=== PATIENT | male | born 1965 | race Caucasian/White ===

== ENCOUNTER 2022-02-26 07:19 | Observation (INO) ==
--- NOTE | 2021-07-16 07:55 | History & Physical Report ---
Date of Service July 16, 2021 date of surgery: 07/31/21 Procedure: Left Total Knee Arthroplasty Surgeon: Ian Wing History of Present Illness Primary Care Provider: Ian Munoz marline is a 55 year old male who complains of right knee pain, presents for pre-op evaluation prior to a right total knee replacement by Dr Wing at [facility]. he complains of pain, decreased range of motion, instability and stiffness in his right knee. Currently the patient states that the symptoms are moderate- severe. The pain is described as aching, sharp and throbbing. The symptoms occur continuously. The symptoms are aggravated by ascending stairs, daily activities, first steps while awake walking. Prior NSAIDs include IBU and Aleve. he has been treated with previous visco and cortisone injections in the past without much relief. he has also undergone previous bilateral knee arthroscopies. Allergies Allergy/AdvReac Type Severity Reaction Status Date / Time No Known Allergies Allergy Verified 05/23/21 15:34 Home Medications Medication Instructions Recorded Confirmed Type allopurinol 100 mg tablet 100 mg PO BID 05/23/21 05/23/21 History aspirin 81 mg tablet 81 mg PO QAM 05/23/21 05/23/21 History atorvastatin 10 mg tablet 10 mg PO HS 05/23/21 05/23/21 History cholecalciferol (vitamin D3) 10 30 mcg PO QAM 05/23/21 05/23/21 History mcg (400 unit) chewable tablet (Vitamin D3) cyanocobalamin (vitamin B-12) 1,000 mcg PO QAM 05/23/21 05/23/21 History 1,000 mcg tablet,extended release (Vitamin B-12 ER) diltiazem HCl 240 mg capsule,24 240 mg PO HS 05/23/21 05/23/21 History hr,extended release duloxetine 60 mg capsule,delayed 60 mg PO HS 05/23/21 05/23/21 History release losartan 100 1 tab PO QAM 05/23/21 05/23/21 History mg-hydrochlorothiazide 25 mg tablet naproxen sodium 220 mg tablet 440 mg PO BID 05/23/21 05/23/21 History (Aleve) omeprazole 20 mg capsule,delayed 20 mg PO QAM 05/23/21 05/23/21 History release temazepam 30 mg capsule 30 mg PO HS PRN 05/23/21 05/23/21 History vitamin E 400 unit capsule 400 unit PO QAM 05/23/21 05/23/21 History Past Med/Surg History Medical History (Updated 05/30/21 @ 16:27 by Socorro Neff PA-C) Chronic back pain Degenerative disc disease GERD (gastroesophageal reflux disease) Well controlled, stable, denies issues laying flat Gout Hx of fracture L4-L5 fracture Hx of gastric ulcer 2017, 3 units PRBCs transfusion. Hx SBO post lumbar fusion, adhesion lysis 2 months ago at [place], Dr. Stanford, reports well recovered without further issues. Hyperlipidemia Hypertension Well controlled, stable. Incontinent of feces at times (takes Metamucil and follows a schedule for maintenance) Incontinent of urine at times -- r/t lumbar surgery post op complication with an injury to the spinal cord causing numbness from the chest down but has regained strength to walk. Kidney stones 2017, passed Osteoarthritis Spinal cord stimulator status placed 01/2021, has remote. Surgical History H/O arthroscopy of knee bilateral H/O exploratory laparotomy multiple for lysis of adhesions and SBO/twisted bowel H/O hernia repair as a child H/O laparoscopy (~2020) lysis of adhesions History of cardiac cath (~2012) x3, last approx. 2015, no stents. [facility]. Official cath report not received. History of colonoscopy History of cystoscopy History of esophagogastroduodenoscopy (EGD) History of lumbar surgery (~2010) 12/2018. [facility]. r/t lumbar fracture. L4-S1 fusion, significant transfusion. post op complication with an injury to the spinal cord causing numbness from the chest down but able to walk. History of open reduction and internal fixation (ORIF) procedure right arm S/P epidural steroid injection S/P hardware removal right arm S/P insertion of spinal cord stimulator S/P lumbar fusion (~2018) L4-S1 Family History Father FHx: myocardial infarction FHx: hypertension Brother FHx: myocardial infarction FHx: hypertension Other No family history of adverse response to anesthesia Social History Smoking Status: Former smoker Smoking End Date: 2004; Second Hand Exposure: No; Do You Dip or Chew Tobacco: No (quit 2004); Tobacco Cessation Education Requested by Patient: No Hx Alcohol Use: Yes Alcohol type: beer, wine and hard liquor Hx Substance Use: Yes Last Used Substance Other:: 05/20/21 Preferred Language: Turkish Communication Ability: Effective Car Starter Required: No Beliefs That Will Affect Care: None Current Living Situation: Spouse Other Information That Helps Us Care for You: No Feels Safe at Home: Yes Safety Concerns: Feels Safe At This Time Assistive Devices: Glasses
--- NOTE | 2021-11-06 08:18 | History & Physical Report ---
Date of Service November 06, 2021 date of surgery: 12/04/21 Procedure: Right Total Knee Arthroplasty Surgeon: Ian Wing Assessment & Plan (1) Arthritis of right knee: Plan: Risks and benefits of procedure discussed in detail today, patient would like to proceed with a Right total knee replacement at [facility] as scheduled. will obtain medical clearance prior to surgery as well as obtain PATs at [facility]. Will place on ASA 81mg po bid x 1 month post op, f/u 2 weeks post op for routine post-operative care and x-ray, sooner if having any problems. will make arrangements for outpatient joint program with HHPT at the time of discharge. At this point in time, has failed conservative measures and would like to proceed with surgical intervention. The risks and benefits have been discussed including, but not limited to, risk of infection, nerve injury, stiffness, loss of motion, failure to improve, etc. Reasonable outcomes and options of treatment were discussed. An explanation of appropriate alternatives to the procedure that may be advantageous were discussed and their risks and benefits, as well as the risks and benefits of not proceeding with treatment. I offered to answer any additional inquiries concerning the treatment involved. All the patient's questions were answered. The patient is agreeable, understanding of the treatment plan and alternatives, and wishes to proceed with the treatment plan. History of Present Illness Chief Complaint: right knee pain Primary Care Provider: Ian Munoz Ronny is a 56 year old male who complains of right knee pain, presents for pre-op evaluation prior to a right total knee replacement by Dr Wing at [facility]. he complains of pain, decreased range of motion, instability and stiffness in his right knee. Currently the patient states that the symptoms are moderate- severe. The pain is described as aching, sharp and throbbing. The symptoms occur continuously. The symptoms are aggravated by ascending stairs, daily activities, first steps while awake walking. Prior NSAIDs include IBU and Aleve. he has been treated with previous visco and cortisone injections in the past without much relief. he has also undergone previous bilateral knee arthroscopies. Allergies Allergy/AdvReac Type Severity Reaction Status Date / Time No Known Allergies Allergy Verified 05/23/21 15:34 Home Medications Medication Instructions Recorded Confirmed Type allopurinol 100 mg tablet 100 mg PO BID 05/23/21 05/23/21 History aspirin 81 mg tablet 81 mg PO QAM 05/23/21 05/23/21 History atorvastatin 10 mg tablet 10 mg PO HS 05/23/21 05/23/21 History cholecalciferol (vitamin D3) 10 30 mcg PO QAM 05/23/21 05/23/21 History mcg (400 unit) chewable tablet (Vitamin D3) cyanocobalamin (vitamin B-12) 1,000 mcg PO QAM 05/23/21 05/23/21 History 1,000 mcg tablet,extended release (Vitamin B-12 ER) diltiazem HCl 240 mg capsule,24 240 mg PO HS 05/23/21 05/23/21 History hr,extended release duloxetine 60 mg capsule,delayed 60 mg PO HS 05/23/21 05/23/21 History release losartan 100 1 tab PO QAM 05/23/21 05/23/21 History mg-hydrochlorothiazide 25 mg tablet naproxen sodium 220 mg tablet 440 mg PO BID 05/23/21 05/23/21 History (Aleve) omeprazole 20 mg capsule,delayed 20 mg PO QAM 05/23/21 05/23/21 History release temazepam 30 mg capsule 30 mg PO HS PRN 05/23/21 05/23/21 History vitamin E 400 unit capsule 400 unit PO QAM 05/23/21 05/23/21 History Past Med/Surg History Medical History Chronic back pain Degenerative disc disease GERD (gastroesophageal reflux disease) Well controlled, stable, denies issues laying flat Gout Hx of fracture L4-L5 fracture Hx of gastric ulcer 2016, 3 units PRBCs transfusion. Hx SBO post lumbar fusion, adhesion lysis 2 months ago at [place], Dr. Stanford, reports well recovered without further issues. Hyperlipidemia Hypertension Well controlled, stable. Incontinent of feces at times (takes Metamucil and follows a schedule for maintenance) Incontinent of urine at times -- r/t lumbar surgery post op complication with an injury to the spinal cord causing numbness from the chest down but has regained strength to walk. Kidney stones 2017, passed Osteoarthritis Spinal cord stimulator status placed 01/2021, has remote. Surgical History H/O arthroscopy of knee bilateral H/O exploratory laparotomy multiple for lysis of adhesions and SBO/twisted bowel H/O hernia repair as a child H/O laparoscopy (~2020) lysis of adhesions History of cardiac cath (~2012) x3, last approx. 2015, no stents. [facility]. Official cath report not received. History of colonoscopy History of cystoscopy History of esophagogastroduodenoscopy (EGD) History of lumbar surgery (~2010) 12/2018. [facility]. r/t lumbar fracture. L4-S1 fusion, significant transfusion. post op complication with an injury to the spinal cord causing numbness from the chest down but able to walk. History of open reduction and internal fixation (ORIF) procedure right arm S/P epidural steroid injection S/P hardware removal right arm S/P insertion of spinal cord stimulator S/P lumbar fusion (~2018) L4-S1 Family History Father FHx: myocardial infarction FHx: hypertension Brother FHx: myocardial infarction FHx: hypertension Other No family history of adverse response to anesthesia Social History Smoking Status: Former smoker Second Hand Exposure: No; Hx Alcohol Use: Yes Alcohol type: beer, wine and hard liquor Hx Substance Use: Yes Last Used Substance Other:: 05/20/21 Preferred Language: Iraqi Communication Ability: Effective Package Sealer Required: No Beliefs That Will Affect Care: None Current Living Situation: Spouse Feels Safe at Home: Yes Assistive Devices: Glasses Review of Systems Review of Systems: All systems reviewed & are unremarkable except as noted in HPI & below Constitutional: no fever, no chills and no sweats Respiratory: no cough and no dyspnea Cardiovascular: no chest pain, no dyspnea and no orthopnea Gastrointestinal: no abdominal pain, no nausea and no vomiting Musculoskeletal: as per Subjective / HPI Physical Exam Physical Exam: HT: 6'1" WT: 280 lb BP: 150/90 Constitutional: WD/WN, vitals as above no acute distress Respiratory: normal respiratory effort, lungs clear to auscultation no respiratory distress, no labored breathing and does not use accessory muscles Cardiovascular: RRR, no murmur, no edema Gastrointestinal (Abdomen): normal bowel sounds, soft, nontender, no hepatosplenomegaly Musculoskeletal: Knee: + knee abnormal to inspection (RIGHT KNEE- ), + effusion (+1 effusion), + surgical incision (well healed portals), + limited ROM of knee (ROM 0/3/110), + knee ROM with crepitation, + joint line tenderness (medial joint line) and + Shahbaz's sign positive; no deformity, no skin erythema, no ecchymosis, no valgus laxity, no varus laxity, anterior drawer test negative, Zhang's sign negative and pivot shift test negative Results & Data Results & Data ([facility]) Diagnostic Findings Right Knee X-ray: Right knee series showing advanced degenerative changes to the right knee, narrowing of the medial compartment and patello-femoral joint with patellar spurring noted, findings showing joint space narrowing of the medial compartment and patello-femoral joint, osteophyte formation and subchondral sclerosis noted. overall varus alignment. no acute bony pathology noted.
--- NOTE | 2021-11-15 11:12 | PAT Medication Instructions ---
Medication Instructions Date of Service November 15, 2021 Home Medications allopurinol 100 mg tablet 100 mg PO BID aspirin 81 mg tablet 81 mg PO QAM atorvastatin 10 mg tablet 10 mg PO HS cholecalciferol (vitamin D3) 10 mcg (400 unit) chewable tablet (Vitamin D3) 30 mcg PO QAM cyanocobalamin (vitamin B-12) 1,000 mcg tablet,extended release (Vitamin B-12 ER) 1,000 mcg PO QAM diltiazem HCl 240 mg capsule,24 hr,extended release 240 mg PO HS duloxetine 60 mg capsule,delayed release 60 mg PO HS losartan 100 mg-hydrochlorothiazide 25 mg tablet 1 tab PO QAM naproxen sodium 220 mg tablet (Aleve) 440 mg PO BID omeprazole 20 mg capsule,delayed release 20 mg PO QAM temazepam 30 mg capsule 30 mg PO HS PRN vitamin E 400 unit capsule 400 unit PO QAM ASK your surgeon for instructions naproxen sodium 220 mg tablet (Aleve) 440 mg PO BID STOP taking 2 weeks before surgery vitamin E 400 unit capsule 400 unit PO QAM DO NOT take the morning of surgery cholecalciferol (vitamin D3) 10 mcg (400 unit) chewable tablet (Vitamin D3) 30 mcg PO QAM cyanocobalamin (vitamin B-12) 1,000 mcg tablet,extended release (Vitamin B-12 ER) 1,000 mcg PO QAM losartan 100 mg-hydrochlorothiazide 25 mg tablet 1 tab PO QAM Take morning of surgery With a small sip of water, OTHERWISE NOTHING TO EAT OR DRINK AFTER MIDNIGHT: allopurinol 100 mg tablet 100 mg PO BID aspirin 81 mg tablet 81 mg PO QAM (unless surgeon directed otherwise) omeprazole 20 mg capsule,delayed release 20 mg PO QAM Take evening before surgery allopurinol 100 mg tablet 100 mg PO BID atorvastatin 10 mg tablet 10 mg PO HS diltiazem HCl 240 mg capsule,24 hr,extended release 240 mg PO HS duloxetine 60 mg capsule,delayed release 60 mg PO HS temazepam 30 mg capsule 30 mg PO HS PRN (if needed) Other Notes If you have any questions please call us at [phone] or [phone] or [phone] or [phone]
--- NOTE | 2021-11-16 08:29 | Anesthesiology Consultation ---
Date of Service November 16, 2021 Assessment & Plan (1) Encounter for pre-operative examination: - will obtain [facility] ER note 11/14/2021. - Pt reports upcoming pulmonology appointment 12/03/21, echo and chest CT. - PCP pre-op appointment 11/19/21. From anesthesia record 05/30/2021: Outpatient (Same Day) Joint Pathway assessment: Patient with history of significant SCI complications r/t previous lumber surgery resulting in intermittent urinary and fecal incontinence. Patient reports that he regained strength to walk but has residual numbness from the chest down. Patient isnota medically appropriate candidate for outpatient joint pathway from anesthesia perspective. Surgeon's office aware, stated is listed as inpatient on their end, aware booking is marked outpatient. She states will send message to OR. - anesthesia history: 12/2018. [facility]. r/t lumbar fracture. L4-S1 fusion, significant transfusion. post op complication with an injury to the spinal cord causing numbness from the chest down but able to walk. - spinal cord stimulator with remote. Pt aware to bring remote to hospital DOS. - COVID screening: Per assessment on 11/16/2021: Travel screen-returned from [place] drove, no known COVID-19 positive contacts or current COVID-19 related symptoms in past 2 weeks. Surgeon arranging preop COVID testing, scheduled 11/30/2021. Awaiting results. Chart Review Chart Review: Pending: Refer to Additional Notes / Consult section and Patient seen in Pre Admission Testing History Surgery Operation Date: 07/31/21 12:15 Proposed Procedures p Left Total Knee Arthroplasty - Ian Wing DO Operation Date: 12/04/21 07:15 Proposed Procedures p Right Total Knee Arthroplasty - Ian Wing DO Height/Weight Height: 6 ft 1 in Weight: 127.5 kg Allergies Allergy/AdvReac Type Severity Reaction Status Date / Time No Known Allergies Allergy Verified 11/15/21 09:37 Medications Home Medications Medication Instructions Recorded Confirmed Last Taken allopurinol 100 mg tablet 100 mg PO BID 05/23/21 11/15/21 Unknown aspirin 81 mg tablet 81 mg PO QAM 05/23/21 11/15/21 Unknown atorvastatin 10 mg tablet 10 mg PO HS 05/23/21 11/15/21 Unknown cholecalciferol (vitamin D3) 10 30 mcg PO QAM 05/23/21 11/15/21 Unknown mcg (400 unit) chewable tablet (Vitamin D3) cyanocobalamin (vitamin B-12) 1,000 mcg PO QAM 05/23/21 11/15/21 Unknown 1,000 mcg tablet,extended release (Vitamin B-12 ER) diltiazem HCl 240 mg capsule,24 240 mg PO HS 05/23/21 11/15/21 Unknown hr,extended release duloxetine 60 mg capsule,delayed 60 mg PO HS 05/23/21 11/15/21 Unknown release losartan 100 1 tab PO QAM 05/23/21 11/15/21 Unknown mg-hydrochlorothiazide 25 mg tablet naproxen sodium 220 mg tablet 440 mg PO BID 05/23/21 11/15/21 Unknown (Aleve) omeprazole 20 mg capsule,delayed 20 mg PO QAM 05/23/21 11/15/21 Unknown release temazepam 30 mg capsule 30 mg PO HS PRN 05/23/21 11/15/21 Unknown vitamin E 400 unit capsule 400 unit PO QAM 05/23/21 11/15/21 Unknown Breo Ellipta 11/16/21 Unknown coenzyme Q10 11/16/21 Unknown Past Medical History Medical History (Updated 11/16/21 @ 09:45 by Socorro Neff PA-C) Chronic back pain Degenerative disc disease Dyspnea on exertion associated occ cough and wheezing, at times waking from sleep; ongoing since COVID illness, denies change or worsening. Using Breo inhaler a few times weekly, occasionally at night. Reports upcoming echo, chest CT and pulm onology appointment with [facility] GERD (gastroesophageal reflux disease) Well controlled, stable, denies issues laying flat Gout History of COVID-19 05/2021; cough, sob, fever, body aches, chills, loss of taste/smell; residual dyspnea on exertion, impaired sense of taste and smell History of recent hospitalization [facility] ER visit 11/14/21. sob/cp. "thought i was having a heart attack" - reports work up normal other than HTN. BP 180s/110s upon arrival. instructed to follow up with PCP. Hx of fracture L4-L5 fracture Hx of gastric ulcer 2016, 3 units PRBCs transfusion Hx SBO post-op lumbar fusion, adhesion lysis 2 months ago ([place], Dr. Stanford), reports well recovered without further issues Hyperlipidemia Hypertension Incontinent of feces at times (takes Metamucil and follows a schedule for maintenance) Incontinent of urine at times -- r/t lumbar surgery post op complication with an injury to the spinal cord causing numbness from the chest down but has regained strength to walk. Kidney stones 2017, passed Osteoarthritis Spinal cord stimulator status placed 01/2021, has remote. Patient denies h/o stroke, seizures, heart attack, heart failure, DM, or blood clots. Exercise / Class Metabolic Activity II 4-5 Yardwork/Stairs/Walk up hill (SOB with 1 FOS ongoing since COVID illness, denies CP) Past Family History Family History Father FHx: myocardial infarction FHx: hypertension Brother FHx: myocardial infarction FHx: hypertension Other No family history of adverse response to anesthesia Past Surgical History Surgical History (Updated 11/16/21 @ 08:17 by Socorro Neff PA-C) H/O arthroscopy of knee bilateral H/O exploratory laparotomy multiple for lysis of adhesions and SBO/twisted bowel H/O hernia repair as a child H/O laparoscopy (~2020) lysis of adhesions History of cardiac cath (~2012) x3, last approx. 2015, no stents. [facility] [place]. Official cath report not received. History of colonoscopy History of cystoscopy History of esophagogastroduodenoscopy (EGD) History of lumbar surgery 12/2018. [facility] [place] r/t lumbar fracture. L4-S1 fusion, significant transfusion. post op complication with an injury to the spinal cord causing numbness from the chest down but able to walk. History of open reduction and internal fixation (ORIF) procedure right arm S/P epidural steroid injection S/P hardware removal right arm S/P insertion of spinal cord stimulator S/P lumbar fusion (~2018) L4-S1 Past Anesthesia History No Family Hx of Anesthesia Complications and Other (post-op transfusion) History of PONV No Hx of PONV and No Hx of Motion Sickness Social History Smoking Status: Former smoker tobacco type: cigarettes Do You Dip or Chew Tobacco: No (quit) Smoking End Date: 2004 Hx Alcohol Use: Yes Alcohol type: beer, wine and hard liquor alcohol intake frequency: 3 or more drinks per day Hx Substance Use: Yes substance use type: marijuana (advised) Last Used Substance: Unknown Last Used Substance Other:: 05/20/21 Review of Systems Patient denies chest pain, snoring, witnessed apneas, fever, chills or palpitations. Physical Exam Vital Signs Vitals BP 158/98 P 89 TEMP 98.6 SP02 100% on RA RESP 17 Physical Full cervical extension range of motion without pain Full TMJ range of motion TMD 3.5 finger breaths Mallampati Score 2 Dentition: intact, several missing teeth upper and lower back and sides, denies loose, chipped teeth, dentures, implants or bridges Lungs: normal respiratory effort. Clear throughout to auscultation, no adventitious breath sounds Cardiac: regular rate and rhythm, no murmurs noted Carotid arteries: negative bruit bilat Testing Laboratory Results 11/14/2021 WBC: 5.6 H/H: 13/38 PLATELETS: 253 Electrocardiogram Date: 11/16/21 NSR, rate 66 bpm Other Testing Chest CTA 11/14/21 Spinal stimulator Negative for pulmonary embolus Clear lung zones Negative for aortic aneurysm or dissection at the examined levels Diffuse hepatic steatosis
--- NOTE | 2022-01-28 07:59 | History & Physical Report ---
Date of Service January 28, 2022 date of surgery: 02/26/22 Procedure: Right Total Knee Arthroplasty Surgeon: Ian Wing Assessment & Plan (1) Arthritis of right knee: Plan: Risks and benefits of procedure discussed in detail today, patient would like to proceed with a Right total knee replacement at [facility] as scheduled. will obtain medical clearance prior to surgery as well as obtain PATs at [facility]. Will place on ASA 81mg po bid x 1 month post op, f/u 2 weeks post op for routine post-operative care and x-ray, sooner if having any problems. will make arrangements for outpatient joint program with HHPT at the time of discharge. At this point in time, has failed conservative measures and would like to proceed with surgical intervention. The risks and benefits have been discussed including, but not limited to, risk of infection, nerve injury, stiffness, loss of motion, failure to improve, etc. Reasonable outcomes and options of treatment were discussed. An explanation of appropriate alternatives to the procedure that may be advantageous were discussed and their risks and benefits, as well as the risks and benefits of not proceeding with treatment. I offered to answer any additional inquiries concerning the treatment involved. All the patient's questions were answered. The patient is agreeable, understanding of the treatment plan and alternatives, and wishes to proceed with the treatment plan. History of Present Illness Chief Complaint: Right knee pain Primary Care Provider: Ian Munoz Ronny is a 56 year old male who complains of right knee pain, presents for pre-op evaluation prior to a right total knee replacement by Dr Wing at [facility]. he complains of pain, decreased range of motion, instability and stiffness in his right knee. Currently the patient states that the symptoms are moderate- severe. The pain is described as aching, sharp and throbbing. The symptoms occur continuously. The symptoms are aggravated by ascending stairs, daily activities, first steps while awake walking. Prior NSAIDs include IBU and Aleve. he has been treated with previous visco and cortisone injections in the past without much relief. he has also undergone previous bilateral knee arthroscopies. Allergies Allergy/AdvReac Type Severity Reaction Status Date / Time No Known Allergies Allergy Verified 11/15/21 09:37 Home Medications Medication Instructions Recorded Confirmed Type allopurinol 100 mg tablet 100 mg PO BID 05/23/21 11/15/21 History aspirin 81 mg tablet 81 mg PO QAM 05/23/21 11/15/21 History atorvastatin 10 mg tablet 10 mg PO HS 05/23/21 11/15/21 History cholecalciferol (vitamin D3) 10 30 mcg PO QAM 05/23/21 11/15/21 History mcg (400 unit) chewable tablet (Vitamin D3) cyanocobalamin (vitamin B-12) 1,000 mcg PO QAM 05/23/21 11/15/21 History 1,000 mcg tablet,extended release (Vitamin B-12 ER) diltiazem HCl 240 mg capsule,24 240 mg PO HS 05/23/21 11/15/21 History hr,extended release duloxetine 60 mg capsule,delayed 60 mg PO HS 05/23/21 11/15/21 History release losartan 100 1 tab PO QAM 05/23/21 11/15/21 History mg-hydrochlorothiazide 25 mg tablet naproxen sodium 220 mg tablet 440 mg PO BID 05/23/21 11/15/21 History (Aleve) omeprazole 20 mg capsule,delayed 20 mg PO QAM 05/23/21 11/15/21 History release temazepam 30 mg capsule 30 mg PO HS PRN 05/23/21 11/15/21 History vitamin E 400 unit capsule 400 unit PO QAM 05/23/21 11/15/21 History Breo Ellipta 11/16/21 History coenzyme Q10 11/16/21 History Past Med/Surg History Medical History Chronic back pain Degenerative disc disease Dyspnea on exertion associated occ cough and wheezing, at times waking from sleep; ongoing since COVID illness, denies change or worsening. Using Breo inhaler a few times weekly, occasionally at night. Reports upcoming echo, chest CT and pulmonology appointment with [facility] GERD (gastroesophageal reflux disease) Well controlled, stable, denies issues laying flat Gout History of COVID-19 05/2021; cough, sob, fever, body aches, chills, loss of taste/smell; residual dyspnea on exertion, impaired sense of taste and smell History of recent hospitalization [facility] ER visit 11/14/21. sob/cp. "thought i was having a heart attack" - reports work up normal other than HTN. BP 180s/110s upon arrival. instructed to follow up with PCP. Hx of fracture L4-L5 fracture Hx of gastric ulcer 2017, 3 units PRBCs transfusion Hx SBO post-op lumbar fusion, adhesion lysis 2 months ago (Dr. Abdoulaye Rogers), reports well recovered without further issues Hyperlipidemia Hypertension Incontinent of feces at times (takes Metamucil and follows a schedule for maintenance) Incontinent of urine at times -- r/t lumbar surgery post op complication with an injury to the spinal cord causing numbness from the chest down but has regained strength to walk. Kidney stones 2017, passed Osteoarthritis Spinal cord stimulator status placed 01/2021, has remote. Surgical History H/O arthroscopy of knee bilateral H/O exploratory laparotomy multiple for lysis of adhesions and SBO/twisted bowel H/O hernia repair as a child H/O laparoscopy (~2020) lysis of adhesions History of cardiac cath (~2012) x3, last approx. 2015, no stents. [facility]. Official cath report not received. History of colonoscopy History of cystoscopy History of esophagogastroduodenoscopy (EGD) History of lumbar surgery 12/2018. [facility] [place]. r/t lumbar fracture. L4-S1 fusion, significant transfusion. post op complication with an injury to the spinal cord causing numbness from the chest down but able to walk. History of open reduction and internal fixation (ORIF) procedure right arm S/P epidural steroid injection S/P hardware removal right arm S/P insertion of spinal cord stimulator S/P lumbar fusion (~2018) L4-S1 Family History Father FHx: myocardial infarction FHx: hypertension Brother FHx: myocardial infarction FHx: hypertension Other No family history of adverse response to anesthesia Social History Smoking Status: Former smoker Smoking End Date: 2004; Second Hand Exposure: No; Do You Dip or Chew Tobacco: No (quit); Tobacco Cessation Education Requested by Patient: No Hx Alcohol Use: Yes Alcohol type: beer, wine and hard liquor Hx Substance Use: Yes Last Used Substance: Unknown Last Used Substance Other:: 05/20/21 Preferred Language: Vietnamese Communication Ability: Effective Behavioral Therapy Coordinator Required: No Beliefs That Will Affect Care: None Current Living Situation: Spouse Feels Safe at Home: Yes Safety Concerns: Feels Safe At This Time Assistive Devices: Glasses Review of Systems Constitutional: no fever, no chills and no sweats Respiratory: no cough and no dyspnea Cardiovascular: no chest pain, no dyspnea and no orthopnea Gastrointestinal: no abdominal pain, no nausea and no vomiting Musculoskeletal: as per Subjective / HPI Physical Exam Physical Exam: HT: 6'1" WT: 280 lb BP: 150/90 Constitutional: WD/WN, vitals as above no acute distress Respiratory: normal respiratory effort, lungs clear to auscultation no r espiratory distress, no labored breathing and does not use accessory muscles Cardiovascular: RRR, no murmur, no edema Gastrointestinal (Abdomen): normal bowel sounds, soft, nontender, no hepatosplenomegaly Musculoskeletal: Knee: + knee abnormal to inspection (RIGHT KNEE- ), + effusion (+1 effusion), + surgical incision (well healed portals), + limited ROM of knee (ROM 0/3/110), + knee ROM with crepitation, + joint line tenderness (medial joint line) and + Shahbaz's sign positive; no deformity, no skin erythema, no ecchymosis, no valgus laxity, no varus laxity, anterior drawer test negative, Zhang's sign negative and pivot shift test negative Results & Data Results & Data ([facility]) Diagnostic Findings Right Knee X-ray: Right knee series showing advanced degenerative changes to the right knee, narrowing of the medial compartment and patello-femoral joint with patellar spurring noted, findings showing joint space narrowing of the medial compartment and patello-femoral joint, osteophyte formation and subchondral sclerosis noted. overall varus alignment. no acute bony pathology noted.
[~2022-02-26 07:19] MED LIST: ACETAMINOPHEN 500 MG TAB PO SCH; BUPIVACAINE 0.5 % 5 MG/1 ML PF 10ML VIAL ONE; FAMOTIDINE 20 MG TAB PO SCH; GABAPENTIN 600 MG DOSE PO SCH; LR 500ML BOLUS, THEN 15ML/HR IV SCH; METOCLOPRAMIDE HCL 10 MG TABLET PO SCH; ROPIVACAINE 0.5% 5 MG/ML 30 ML VIAL ONE; ROPIVACAINE 0.5% HCL/PF 150 MG, BUPIVACAINE 0.75% MPF 20 ML, EPINEPHrine 30MG/30ML (OR ... INFIL SCH; TRANEXAMIC ACID 1,000 MG **IV Intra-op IV SCH; TRANEXAMIC ACID 1,000 MG **IV Pre-op IV SCH; dexAMETHasone 4 MG TAB PO SCH
[2022-02-26] MEDS ORDERED: fentaNYL citrate 100 MCG/2 ML VIAL ONE ×2 (07:53→11:16)
[2022-02-26] MEDS ORDERED: MIDAZOLAM HCL 1 MG/ML 2ML VIAL ONE (07:53)
--- NOTE | 2022-02-26 09:20 | History & Physical Bridge Note ---
Date of Service February 26, 2022 History & Physical Bridge Note I have examined the patient, reviewed the History & Physical and in the interval since the performance of the History & Physical I have noted the following changes of clinical significance: no changes noted
[2022-02-26] MEDS ORDERED: ONDANSETRON INJ 2 MG/ML 2 ML VIAL IV PRN ×2 (09:23→12:51)
[2022-02-26] MEDS ORDERED: ePHEDrine sulfate 50 MG/ML AMP IV PRN (09:23)
[2022-02-26] MEDS ORDERED: ATROPINE SULFATE 0.1 MG/ML 10ML SYR IV PRN (09:23)
[2022-02-26] MEDS ORDERED: ORTHO JOINT ANESTHETIC ONE (10:00)
[2022-02-26] MEDS ORDERED: PROPOFOL IV EMULSION 10 MG/ML 20 ML VIAL IV ONE (11:50)
[2022-02-26] MEDS ORDERED: LIDOCAINE 2% MPF LOCAL 5 ML VIAL INFIL ONE (11:51)
--- NOTE | 2022-02-26 12:06 | Operative Report ---
Post Operative Report Pre & Post Diagnosis Operation Date: 07/31/21 12:15 <No data on this case meets the specified criteria> Operation Date: 12/04/21 07:15 <No data on this case meets the specified criteria> Operation Date: 02/26/22 10:20 Pre-Op Diagnosis: Osteoarthritis, Right Knee Post-Op Diagnosis: Osteoarthritis, Right Knee I identified the patient and participated in the time-out.: Yes Procedure Operation Date: 07/31/21 12:15 <No data on this case meets the specified criteria> Operation Date: 12/04/21 07:15 <No data on this case meets the specified criteria> Operation Date: 02/26/22 10:20 Actual Procedures p Right Total Knee Arthroplasty(Right) - Ian Wing DO Surgeon Ian Wing DO Estimated Blood Loss 5 I attest to the content of the Intraoperative Record and any orders documented therein. Any exceptions are noted below.
--- NOTE | 2022-02-26 12:10 | Operative Report ---
Post Operative Report Pre & Post Diagnosis Operation Date: 07/31/21 12:15 <No data on this case meets the specified criteria> Operation Date: 12/04/21 07:15 <No data on this case meets the specified criteria> Operation Date: 02/26/22 10:20 Pre-Op Diagnosis: Osteoarthritis, Right Knee Post-Op Diagnosis: Osteoarthritis, Right Knee I identified the patient and participated in the time-out.: Yes Procedure Operation Date: 07/31/21 12:15 <No data on this case meets the specified criteria> Operation Date: 12/04/21 07:15 <No data on this case meets the specified criteria> Operation Date: 02/26/22 10:20 Actual Procedures p Right Total Knee Arthroplasty(Right) utilizing [employer] persona size 12 right femur tibia H poly-12 mm patella 34 oval Ian Wing DO Surgeon Ian Wing DO [employer] DEIDRE Fox Estimated Blood Loss 5 Findings Consistent with Post-Op Diagnosis Patient is a severe end-stage tricompartmental degenerative joint disease right knee no response to conservative management patient has eburnated [id number] marginal osteophytes subchondral sclerosis moderate to large effusion Specimens Bone and cartilage Drains Medium bore Hemovac Anesthesia Type MAC Spinal Regional Complications none Disposition Accompanied Patient To Recovery: No Disposition: Recovery Room Indications Patient presents with severe end-stage DJD right knee no response to conservative management patient has failed attempted corticosteroid injection viscosupplementation relative rest activity modification relative rest patient presents for right total knee arthroplasty Description of Procedure After proper prepping and draping of the Right lower extremity anterior midline incision was made over the region of the extensor extensor mechanism after meticulous hemostasis was obtained and maintained in subcutaneous tissues a medial parapatellar incision was made The patella was subluxed lateralward the medial lateral gutter were cleaned from any hypertrophic synovitis and scar tissue of the distal femoral block was placed and the distal femoral osteotomy cut was made subsequently the chamfers anterior and posterior osteotomy cuts were made utilizing the 4-in-1 block the tibia was subsequently subluxed anteriorward medial and ateral meniscal remnants were excised in their entirety remnants of the anterior and posterior cruciate ligaments were excised in their entirety excellent exposure of the proximal tibia was obtained the tibial osteotomy guide was placed on the proximal tibial osteotomy cut was made once again the knee was irrigated with copious amounts of sterile saline solution the patella was subsequently everted lateralward thickened scar tissue around the patella was removed the patella was subsequently cut utilizing a freehand technique and was drilled prepared for final preparation and placement of patella socially flexion-extension gaps were checked and the equal and symmetric trials were placed to the appropriate femoral and tibial trials with poly-spacer being placed for equal flexion and extension gaps and full range of motion including extension to 0 and flexion to 140 the trial components after having been taken to recovery range of motion was subsequently removed meticulous hemostasis was obtained and maintained subsequently a knee block injection of joint cocktail including ropivacaine 0.5% 150 mg. Bupivacaine 0.5% epinephrine 1-200,030 mL's toradol 30 mg dexamethasone 4 mg ketamine 10 mg clonidine 100 micrograms normal saline solution 30 mg was infiltrated into the soft tissues of the posterior knee medial lateral gutters and periosteal synovium special attention was paid to protect neurovascular structures at all times subsequently trial components having been removed the knee was irrigated with sterile saline solution. debris was removed the proximal tibia was subsequently prepared and was made ready for the placement of the tibial component tibial component was also cemented and tamped into position the femoral component was subsequently placed and cemented in the position the patellar component was subsequently cemented in position because hemostasis once again obtained and maintained wound having been thoroughly irrigated with debridement and debridement lavage was performed as well as a medial parapatellar incision closed with #1 Vicryl in interrupted fashion subcutaneous was closed with #2 Vicryl skin was closed with skin clips. PA-C was necessary for prepping and drapping as well as wound closure of deep fascia Sub cutaneous tissue and skin and was necessary for the case. A sterile compressive dressing was placed patient was taken to recovery in stable condition of report dictated by Maciej I attest to the content of the Intraoperative Record and any orders documented therein. Any exceptions are noted below.Due to the complex nature of the procedure, the entire surgery was performed with the operational assistance of DEIDRE Fox. The civil engineering assistant, under direct supervision, was involved in the actual performance of all aspects of the surgical procedure including hemostasis, tissue retraction and incision, instrument management, patient positioning, and wound closure. I attest to the content of the Intraoperative Record and any orders documented therein. Any exceptions are noted below.
[2022-02-26] MEDS ORDERED: bisacodyL 10 MG SUPP PR PRN (12:51)
[2022-02-26] MEDS ORDERED: NALOXONE HCL 0.4 MG/1 ML VIAL/CARP IV PRN (12:51)
[2022-02-26] MEDS ORDERED: METOCLOPRAMIDE HCL INJ 5 MG/ML 2 ML VIAL IV PRN (12:51)
[2022-02-26] MEDS ORDERED: MAGNESIUM HYDROXIDE SUSP 30 ML UDC PO PRN (12:51)
[2022-02-26] MEDS ORDERED: diphenhydrAMINE Capsule 25 MG CAP PO PRN (12:51)
[2022-02-26] MEDS: fentaNYL citrate 100 MCG/2 ML VIAL IV PRN ×2 (13:07→13:12)
--- NOTE | 2022-02-26 13:21 | XRay Report ---
RIGHT KNEE 2 VIEWS History: Right total knee arthroplasty. Degenerative arthritis. Postop. FINDINGS: The patient is status post a right total knee arthroplasty. The hardware is intact. No frac ture or dislocation. Surgical drains are in place. IMPRESSION: Right total knee arthroplasty. No evidence for hardware complication. ACT 112: Negative or not required by law. Electronically signed by: Paolo Gastelum M.D. 02/26/2022 1:19 PM
[2022-02-26] MEDS ORDERED: HYDROmorphone INJ 1 MG/ML SYRINGE ONE (13:22)
[2022-02-26] MEDS: HYDROmorphone INJ 0.5 MG/0.5 ML SYR IV PRN ×2 (13:22→13:27)
[2022-02-26] MEDS ORDERED: KETOROLAC 30 MG/ML VIAL ONE (13:40)
[2022-02-26] MEDS: KETOROLAC 30 MG/ML VIAL IV SCH ×2 (13:41→20:47)
--- NOTE | 2022-02-26 13:49 | Anesthesiology Progress Note ---
Date of Service February 26, 2022 Anesthesia Post Procedure Vital Signs Vital Signs: Temp Pulse Pulse Resp BP BP Pulse Ox 02/26/22 13:45 97.5 F L 84 18 135/87 95 02/26/22 13:35 80 18 111/74 93 02/26/22 13:25 74 14 140/81 92 02/26/22 13:15 83 16 129/80 93 02/26/22 13:05 78 14 131/82 92 02/26/22 12:55 63 13 116/80 97 02/26/22 12:46 96.8 F L 90 15 139/85 93 02/26/22 08:01 98.8 F 88 22 135/98 98 Pain Intensity Bilateral Knee: Pain Intensity: 4 Transfer of Care Handoff Completed per policy Notes Mental Status: alert / awake / arousable and participated in evaluation Patient Amnestic to Procedure: Yes Nausea / Vomiting: adequately controlled Pain: adequately controlled Airway Patency, RR, SpO2: stable & adequate BP & HR: stable & adequate Hydration State: stable & adequate Anesthetic Complications: no major complications apparent and Pt Satisfied with anesthetic care
[2022-02-26] MEDS: ACETAMINOPHEN 500 MG TAB PO SCH ×2 (14:47→22:42)
[2022-02-26] MEDS: SODIUM CHLORIDE 0.9% 1000ML 1,000 ML IV SCH ×2 (14:47→23:59)
[2022-02-26] MEDS ORDERED: Nursing to Pharmacy Communication SCH (15:00)
[2022-02-26] MEDS: HYDROmorphone INJ 1 MG/ML SYRINGE IV PRN ×2 (15:37→19:45)
[2022-02-26] MEDS: cloNIDine HCL 0.1 MG TAB PO SCH (15:39)
[2022-02-26] MEDS: oxyCODONE HCL IR 5 MG TAB (IMMEDIATE RELEASE) PO PRN (18:36)
[2022-02-26] MEDS: ceFAZolin 2000MG 2,000 MG/15 ML SYR IV SCH (18:37)
[2022-02-26] MEDS: allopurinoL 100 MG TAB PO SCH (20:53)
[2022-02-26] MEDS: ASPIRIN 81 MG ECTAB PO SCH (20:53)
[2022-02-26] MEDS: DOCUSATE SODIUM 100 MG CAP PO SCH (20:54)
[2022-02-26] MEDS ORDERED: amLODIPine BESYLATE 5 MG TAB PO SCH (21:00)
[2022-02-26] MEDS ORDERED: hydrOXYzine HCl 25 MG TAB PO SCH (21:00)
[2022-02-26] MEDS ORDERED: ATORVASTATIN 10 MG TAB PO SCH (21:00)
[2022-02-26] MEDS ORDERED: cloNIDine HCL 0.1 MG TAB PO SCH (21:00)
[2022-02-26] MEDS ORDERED: FLUTICASONE/VILANTEROL 200/25MCG 14 PUFFS/INHALER INH SCH (21:00)
[2022-02-26] MEDS ORDERED: DULoxetine HCL 30 MG CAP PO SCH (21:00)
[2022-02-26] MEDS ORDERED: SENNA 8.6 MG TAB PO SCH (21:00)
[2022-02-27] MEDS: oxyCODONE HCL IR 5 MG TAB (IMMEDIATE RELEASE) PO PRN (00:03)
[2022-02-27] MEDS: KETOROLAC 30 MG/ML VIAL IV SCH ×2 (02:53→09:13)
[2022-02-27] MEDS: ceFAZolin 2000MG 2,000 MG/15 ML SYR IV SCH (02:53)
[2022-02-27] MEDS: ACETAMINOPHEN 500 MG TAB PO SCH (06:26)
[2022-02-27] MEDS: cloNIDine HCL 0.1 MG TAB PO SCH (06:27)
[2022-02-27] MEDS: HYDROmorphone INJ 1 MG/ML SYRINGE IV PRN (07:23)
[2022-02-27] MEDS: allopurinoL 100 MG TAB PO SCH (07:29)
[2022-02-27] MEDS: ASPIRIN 81 MG ECTAB PO SCH (07:30)
[2022-02-27] MEDS: DOCUSATE SODIUM 100 MG CAP PO SCH (07:30)
[2022-02-27 07:34] LABS: Hemoglobin 10.9 g/dl (14.0-18.0); Mean Corpuscular Hemoglobin 30.4 pg (25.0-34.0); Mean Corpuscular Hgb Conc 34.1 g/dL (32.0-36.0); Mean Corpuscular Volume 89.4 fL (80.0-100.0); Platelet Count 217 K/uL (130-400); RDW Coefficient of Variation 11.8 % (11.5-14.5); RDW Standard Deviation 38.1 fL (36.4-46.3); Red Blood Count 3.58 M/uL (4.63-6.08); White Blood Count 10.94 K/ul (4.8-10.8)
[2022-02-27 07:57] LABS: Calcium 8.3 mg/dl (8.5-10.1); Creatinine Clr Calc Pharmacy 109.8 ml/min; Est GFR (African American) 91.1 ml/min; Est GFR (Non-African American) 78.6 ml/min; Potassium 3.8 mmol/L (3.5-5.1)
--- NOTE | 2022-02-27 08:38 | Orthopedic Progress Note ---
Date of Service February 27, 2022 Assessment & Plan (1) Arthritis of right knee: Plan: Postop day 1 status post right total knee arthroplasty PT/OT protocols. Weightbearing as tolerated. DVT prophylaxis-aspirin p.o. twice daily, SCDs, JERRICA rordiguez. Pain management as written. DC planning-patient is planning for home health services upon discharge. Plan for discharge to home later today after PT and OT. Admission and Anticipated Discharge Date Admission Date: February 26, 2022 Subjective Postop day 1 Patient sitting up in a chair at the bedside. Eating breakfast. No complaints this morning. Pain is controlled. He is feeling well. He is hoping to go home today. Physical Exam Physical Exam: Dressings are clean, dry, and intact. Calves are soft and nontender. Neurovascular is intact. Toes are mobile. He has good dorsiflexion and plantarflexion of the right foot. Hemovac drainage was 155 mL from the previous shift. Results & Data ([facility]) Vital Signs (Past 12 Hours) Vital Signs Temp Pulse Resp BP Pulse Ox O2 Del Method 02/27/22 06:43 37.1 C 79 18 146/88 H 95 Room Air 02/27/22 06:26 92 H 156/95 H 02/27/22 03:00 36.5 C 92 H 22 133/88 93 Room Air 02/26/22 23:31 36.9 C 91 H 20 131/83 98 Room Air 02/26/22 20:51 99 H 140/89 97 Room Air Laboratory Results Laboratory Results WBC 10.94 K/ul (4.8-10.8) H 02/27/22 07:19 RBC 3.58 M/uL (4.63-6.08) L 02/27/22 07:19 Hgb 10.9 g/dl (14.0-18.0) L 02/27/22 07:19 Hct 32.0 % (40.1-51.0) L 02/27/22 07:19 MCV 89.4 fL (80.0-100.0) 02/27/22 07:19 MCH 30.4 pg (25.0-34.0) 02/27/22 07:19 MCHC 34.1 g/dL (32.0-36.0) 02/27/22 07:19 RDW Std Deviation 38.1 fL (36.4-46.3) 02/27/22 07:19 RDW Coeff of Km 11.8 % (11.5-14.5) 02/27/22 07:19 Plt Count 217 K/uL (130-400) 02/27/22 07:19 MPV 9.0 fL (9.4-12.4) L 02/27/22 07:19 Sodium 136 mmol/L (136-145) 02/27/22 07:19 Potassium 3.8 mmol/L (3.5-5.1) 02/27/22 07:19 Chloride 103 mmol/L (98-107) 02/27/22 07:19 Carbon Dioxide 26 mmol/L (21-32) 02/27/22 07:19 Anion Gap 7 (3-11) 02/27/22 07:19 BUN 18 mg/dl (6-23) 02/27/22 07:19 Creatinine 1.06 mg/dl (0.6-1.4) 02/27/22 07:19 Est Cr Clr Drug Dosing 109.8 ml/min 02/27/22 07:19 Est GFR ( Amer) 91.1 ml/min 02/27/22 07:19 Est GFR (Non-Af Amer) 78.6 ml/min 02/27/22 07:19 BUN/Creatinine Ratio 17.0 (10-20) 02/27/22 07:19 Glucose 136 mg/dl (70-99(Fasting)) H 02/27/22 07:19 Calcium 8.3 mg/dl (8.5-10.1) L 02/27/22 07:19 Blood Type A Positive 02/26/22 07:59 Antibody Screen NEGATIVE 02/26/22 07:59 Impressions Knee X-Ray 02/26/22 12:57 RIGHT KNEE 2 VIEWS History: Right total knee arthroplasty. Degenerative arthritis. Postop. FINDINGS: The patient is status post a right total knee arthroplasty. The hardware is intact. No fracture or dislocation. Surgical drains are in place. IMPRESSION: Right total knee arthroplasty. No evidence for hardware complication. ACT 112: Negative or not required by law. Electronically signed by: Paolo Gastelum M.D. 02/26/2022 1:19 PM
[2022-02-27] MEDS ORDERED: CYANOCOBALAMIN (B-12) 500 MCG TABLET PO SCH (09:00)
[2022-02-27] MEDS ORDERED: TOCOPHERYL, DL-ALPHA 400 UNITS 180 MG CAP PO SCH (09:00)
[2022-02-27] MEDS ORDERED: LOSARTAN/HCTZ 50/12.5MG TAB PO SCH (09:00)
[2022-02-27] MEDS ORDERED: ASCORBIC ACID 500 MG TAB PO SCH (09:00)
[2022-02-27] MEDS ORDERED: CHOLECALCIFEROL 400 UNITS 10 MCG TAB PO SCH (09:00)
[2022-02-27] MEDS ORDERED: MULTIVITAMIN TAB PO SCH (09:00)
[2022-02-27] MEDS ORDERED: dilTIAZem HCL 300 MG CAPCR PO SCH (09:00)
--- NOTE | 2022-02-27 09:16 | Discharge Summary ---
Date of Service date of discharge: February 27, 2022 date of admission: 01-27-22 Admission HPI Per Admitting Provider Ronny is a 56 year old male who complains of right knee pain, presents for pre- op evaluation prior to a right total knee replacement by Dr Wing at [facility]. he complains of pain, decreased range of motion, instability and stiffness in his right knee. Currently the patient states that the symptoms are moderate-severe. The pain is described as aching, sharp and throbbing. The symptoms occur continuously. The symptoms are aggravated by ascending stairs, daily activities, first steps while awake walking. Prior NSAIDs include IBU and Aleve. he has been treated with previous visco and cortisone injections in the past without much relief. he has also undergone previous bilateral knee arthroscopies. Principal Diagnosis right knee osteoarthritis Discharge Exam Musculoskeletal right knee: NVDI, calf SNT, negative lai sign. DP palpable, able to wiggle toes/ankle movement without difficulty. NISHA dressing clean dry and intact. expected post-operative bruising noted. Discharge Data Allergies Allergy/AdvReac Type Severity Reaction Status Date / Time No Known Allergies Allergy Verified 02/26/22 07:57 Procedures Performed Operation Date: 07/31/21 12:15 <No data on this case meets the specified criteria> Operation Date: 12/04/21 07:15 <No data on this case meets the specified criteria> Operation Date: 02/26/22 10:20 Actual Procedures p Right Total Knee Arthroplasty(Right) - Ian Wing, Ordered Studies 02/26/22 05:00 US - OR guided needle placemen Routine Hospital Course (1) Arthritis of right knee: Postop day 1 status post right total knee arthroplasty PT/OT protocols. Weightbearing as tolerated. DVT prophylaxis-aspirin p.o. twice daily, SCDs, JERRICA rodriguez. Pain management as written. DC planning-patient is planning for home health services upon discharge. Plan for discharge to home later today after PT and OT. Total Time Total Time Spent Total Time Spent (In Minutes): 20 Discharge Plan Discharge Items Patient Disposition: Home - Home Health Services Reason For Visit: Osteoarthritis, Right Knee Discharge Diagnosis: RIGHT TOTAL KNEE REPLACEMENT Activity: Per Instructions section Lifting: Wait until after follow-up appointment Weightbearing Comment: WBAT WITH WALKER Non-emergency contact: Surgeon Call non-emergency contact if: you have any medication questions, your temperature is above 101, your wound has increased redness, your wound has increased drainage and your wound pain has increased Follow-up/Referrals: Ian Wing, [Surgeon] - (Follow-up with Dr. Wing in 2 weeks from the day of your surgery for your first postoperative visit. Please call for appointment if 1 has not been made for you.) Ian Munoz M.D. [Primary Care Provider] - Diet: Regular Addtl Attending Provider Instructions: ACTIVITY RECOMMENDATIONS: SELF CARE INSTRUCTIONS AFTER TOTAL KNEE REPLACEMENT A. You may need to continue a physical therapy program after discharge from the hospital. There are several options available to you. Your doctor will assist you in selecting the best one for you. 1. An out-patient facility 2 to 3 times a week for therapy or home therapy. 2. Continue working on all exercises taught to you in the hospital. Your goals should be to increase bending of your knee to 90 degrees and beyond and to fully straighten your knee. B. You may progress at your own pace from walking with a walker or crutches to a cane; then to no assistive devices. C. Make walking a part of your daily routine. Be up as much as comfortable with rest periods throughout the day. Rest with leg elevation is very important. Use the ice wrap frequently for the first 3-4 weeks. D. There are no restrictions on activities. You may ride in a car, shop, participate in wagon person and all social activities. E. Wear the long elastic stockings (JERRICA hose) 20 hours a day for 2 weeks after surgery. They can be removed several times a day for laundering and for a bath. F. You may shower, no tub baths until cleared by your doctor. SPECIAL CARE INSTRUCTIONS: VERY IMPORTANT TO READ AND REVIEW A. There are a few signs you need to watch for after you are home. Call [facility] if you notice any of the followin. Increased severe knee pain. Some pain is expected especially when you exercise. 2. Increased swelling in your leg or knee; pain or swelling of the calf muscle in either lower leg. 3. Any fluid drainage from the incision. 4. Shortness of breath or chest pain. B. Please call [facility] at if you have any concerns or questions about your operation or recovery. The doctor or his nurse will return your call promptly. C. You must take antibiotics before dental work, bladder, bowel or other surgery. Your doctor will provide you with a permanent care to carry describing this precaution. IMPORTANT: * REMEMBER TO TAKE ASPIRIN, 81 MG, TWICE DAILY FOR 4 WEEKS UNLESS OTHERWISE DIRECTED. THIS IS YOUR BLOOD THINNER. * HIGH RISK PATIENTS MAY BE PRESCRIBED A STRONGER BLOOD THINNER. THIS WILL BE PROVIDED AT DISCHARGE. * CALL IF INCREASED PAIN, REDNESS, DRAINAGE OR FEVER GREATER THAT 101. * WEAR JERRICA HOSE 20 HOURS PER DAY FOR 2 WEEKS. * NISHA Dressing- This is a large suction dressing covering your incision. This will help pull any excess drainage from the wound and allow your incision to heal properly. You may shower with this if you can keep the unit outside of the shower. If any bleeding or leakage is noted please call your doctor's office. This will remain on your incision for 7 days and then should be removed. This can be done yourself or by the home nursing staff if applicable. The entire unit is disposable once removed. Once removed, keep incision clean and dry. If redness or drainage is noted, please call your surgeon. ONCE NISHA IS REMOVED, FOLLOW THESE INSTRUCTIONS: DERMABOND Prineo- This is a mesh tape dressing that is covered with glue. It should remain in place until the incision is properly healed, usually 10-14 days. This dressing is designed to naturally slough off. You may trim the excess mesh tape as it peels off. Incision may be briefly wet in a shower. D ry immediately by blotting with a clean, dry towel. Do not bath or swim until instructed by your doctor. Do not scratch, rub, or pick at the dressing. Do not apply any topical ointments or lotions until dressing is completely removed and/or instructed by your doctor. There may be a small piece of suture material at one end of your incision. Do not pull or trim this. If it is bothersome or catching on clothing, you may cover it with a band-aid. IF INCISION IS LEAKING THROUGH DRESSING, CALL THE OFFICE . FOLLOW UP VISIT: If appointment is not already scheduled: Please call [facility] to make a follow-up appointment for 2 weeks after your surgery at . Stand-Alone Forms: [facility], Smoking Cessation Medications and DC Order Prescriptions: New celecoxib [Celebrex] 200 mg Capsule 200 mg PO BID 14 Days Qty: 28 0RF aspirin 81 mg Tablet,Delayed Release (Dr/Ec) 81 mg PO BID 30 Days Qty: 60 0RF acetaminophen [Tylenol Extra Strength] 500 mg Tablet 1,000 mg PO Q8 14 Days Qty: 84 0RF polyethylene glycol 3350 [Miralax] 17 gram powder in packet 17 g PO DAILY PRN (Reason: constipation) Qty: 5 0RF cefadroxil 500 mg capsule 500 mg PO BID Qty: 28 1RF oxycodone 5 mg tablet 5 mg PO Q4H MDD 6 PRN (Reason: pain) Qty: 30 0RF Continued cyanocobalamin (vitamin B-12) [Vitamin B-12] 1,000 mcg Tablet Extended Release 1,000 mcg PO QAM atorvastatin 10 mg Tablet 10 mg PO HS losartan-hydrochlorothiazide 100-25 mg Tablet 1 tab PO QAM omeprazole 20 mg Capsule,Delayed Release(Dr/Ec) 20 mg PO QAM vitamin E 400 unit Capsule 400 unit PO QAM duloxetine 60 mg Capsule,Delayed Release(Dr/Ec) 90 mg PO HS cholecalciferol (vitamin D3) [Vitamin D3] 10 mcg (400 unit) Tablet,Chewable 30 mcg PO QAM allopurinol 100 mg Tablet 100 mg PO BID clonidine HCl 0.1 mg Tablet 0.1 mg PO BID hydroxyzine pamoate 50 mg Capsule 50 mg PO HS amlodipine 5 mg Tablet 5 mg PO HS ascorbic acid (vitamin C) [Vitamin C] 500 mg Tablet 500 mg PO QAM cranberry 1,000 mg Capsule 1,500 mg PO QAM diltiazem HCl 300 mg Tablet Extended Release 24 Hr 300 mg PO QAM coenzyme Q10 [Co Q-10] 400 mg Capsule 400 mg PO QAM Dulera 100-5 mcg/actuation Hfa Aerosol Inhaler 2 puff INHALATION BID Probiotic 3 billion cell Capsule 3,000 mmu cells PO QAM Discontinued naproxen sodium [Aleve] 220 mg Tablet 440 mg PO BID PRN (Reason: Pain) tramadol 50 mg Tablet 50 mg PO BID PRN (Reason: Pain) Discharge Orders: Discharge Order (Routine); Ordered 02/27/22 Ordered By: Herminio Enamorado Admission Data Admit Date/Time: 02/26/22 12:51 Attending Provider: Ian Wing Admit Provider: Ian Wing Primary Care Provider: Ian Munoz
[2022-02-27] MEDS ORDERED: CeleBREX 200 MG CAP PO SCH (21:00)
== END 2022-02-27 10:44 | disposition home health service (06) ==
LOC: 3E 07:19 → ASU 07:19

== ENCOUNTER 2022-12-02 06:22 | Inpatient (IN) ==
--- NOTE | 2022-11-13 10:02 | PAT Medication Instructions ---
Medication Instructions Date of Service November 13, 2022 Home Medications Medication Instructions Recorded cefadroxil 500 mg capsule 500 mg PO BID #28 caps 02/27/22 oxycodone 5 mg tablet 5 mg PO Q4H PRN pain #30 tabs 02/27/22 allopurinol 100 mg tablet 100 mg PO BID atorvastatin 10 mg tablet 10 mg PO HS cholecalciferol (vitamin D3) 10 mcg (400 unit) chewable tablet (Vitamin D3) 30 mcg PO QAM cyanocobalamin (vitamin B-12) 1,000 mcg tablet,extended release (Vitamin B-12 ER) 1,000 mcg PO QAM duloxetine 60 mg capsule,delayed release 90 mg PO HS losartan 100 mg-hydrochlorothiazide 25 mg tablet 1 tab PO QAM omeprazole 20 mg capsule,delayed release 20 mg PO QAM vitamin E 268 mg (400 unit) capsule 400 unit PO QAM amlodipine 5 mg tablet 5 mg PO HS ascorbic acid (vitamin C) 500 mg tablet (Vitamin C) 500 mg PO QAM clonidine HCl 0.1 mg tablet 0.1 mg PO BID coenzyme Q10 400 mg capsule (Co Q-10) 400 mg PO QAM cranberry 1,000 mg capsule 1,500 mg PO QAM diltiazem HCl 300 mg tablet,extended release 24 hr 300 mg PO QAM hydroxyzine pamoate 50 mg capsule 50 mg PO HS lactobacillus combination no.4 3 billion cell capsule (Probiotic) 3,000 mmu cells PO QAM mometasone-formoterol HFA 100 mcg-5 mcg/actuation aerosol inhaler (Dulera) 2 puff inhalation BID cefadroxil 500 mg capsule 500 mg PO BID oxycodone 5 mg tablet 5 mg PO Q4H PRN lorazepam 0.5 mg tablet 0.5 mg PO TID PRN ipratropium 0.5 mg-albuterol 3 mg (2.5 mg base)/3 mL nebulization soln 3 ml inhalation TID PRN Continue as directed cefadroxil 500 mg capsule 500 mg PO BID STOP taking 2 weeks before surgery (or as soon as possible if surgery is within 2 weeks) vitamin E 268 mg (400 unit) capsule 400 unit PO QAM coenzyme Q10 400 mg capsule (Co Q-10) 400 mg PO QAM cranberry 1,000 mg capsule 1,500 mg PO QAM DO NOT take the morning of surgery cholecalciferol (vitamin D3) 10 mcg (400 unit) chewable tablet (Vitamin D3) 30 mcg PO QAM cyanocobalamin (vitamin B-12) 1,000 mcg tablet,extended release (Vitamin B-12 ER) 1,000 mcg PO QAM losartan 100 mg-hydrochlorothiazide 25 mg tablet 1 tab PO QAM ascorbic acid (vitamin C) 500 mg tablet (Vitamin C) 500 mg PO QAM lactobacillus combination no.4 3 billion cell capsule (Probiotic) 3,000 mmu cells PO QAM Take morning of surgery With a small sip of water, OTHERWISE NOTHING TO EAT OR DRINK AFTER MIDNIGHT: allopurinol 100 mg tablet 100 mg PO BID omeprazole 20 mg capsule,delayed release 20 mg PO QAM clonidine HCl 0.1 mg tablet 0.1 mg PO BID diltiazem HCl 300 mg tablet,extended release 24 hr 300 mg PO QAM mometasone-formoterol HFA 100 mcg-5 mcg/actuation aerosol inhaler (Dulera) 2 puff inhalation BID oxycodone 5 mg tablet 5 mg PO Q4H PRN(if needed) lorazepam 0.5 mg tablet 0.5 mg PO TID PRN(if needed) ipratropium 0.5 mg-albuterol 3 mg (2.5 mg base)/3 mL nebulization soln 3 ml inhalation TID PRN(if needed) Take evening before surgery allopurinol 100 mg tablet 100 mg PO BID atorvastatin 10 mg tablet 10 mg PO HS duloxetine 60 mg capsule,delayed release 90 mg PO HS amlodipine 5 mg tablet 5 mg PO HS clonidine HCl 0.1 mg tablet 0.1 mg PO BID hydroxyzine pamoate 50 mg capsule 50 mg PO HS mometasone-formoterol HFA 100 mcg-5 mcg/actuation aerosol inhaler (Dulera) 2 puff inhalation BID oxycodone 5 mg tablet 5 mg PO Q4H PRN(if needed) lorazepam 0.5 mg tablet 0.5 mg PO TID PRN(if needed) ipratropium 0.5 mg-albuterol 3 mg (2.5 mg base)/3 mL nebulization soln 3 ml inhalation TID PRN(if needed) Other Notes If you have any questions please call us at [phone] or [phone] or [phone] or [phone]
--- NOTE | 2022-11-18 10:20 | Anesthesiology Consultation ---
Date of Service November 18, 2022 Assessment & Plan (1) Encounter for pre-operative examination: - awaiting PCP clearance 11/19/22 and cardiology clearance. PAT testing to be faxed to PCP. - Case discussed in detail with Dr. Rebolledo who advised that if pt is cleared by PCP and cardiology, pulmonology pre-op evaluation will not be needed prior to surgery. - Per Michelle with surgeon's office, pt will also need cardiology clearance. Pt made aware of this at PAT visit. - spinal cord stimulator with remote.Pt aware to bring remote to hospital DOS. Chart Review Chart Review: Pending: Refer to Additional Notes / Consult section and Patient seen in Pre Admission Testing Teaching & Discussion Pre-Anesthesia Teaching/Discussion Notes: Instructed NPO after midnight before surgery, except medications with 15 cc of water. Medication instructions provided according to the [facility] guidelines. History Surgery Operation Date: 12/02/22 10:05 Proposed Procedures p L1-L2 Decompression, T11-L2 Fusion (Connecting to Old Hardware), Spinal Cord Monitoring - Fermin Dejesus, Height/Weight Height: 6 ft 1 in Weight: 124 kg Allergies Allergy/AdvReac Type Severity Reaction Status Date / Time No Known Allergies Allergy Verified 11/11/22 07:30 Medications Home Medications Medication Instructions Recorded Confirmed Last Taken allopurinol 100 mg tablet 100 mg PO BID 05/23/21 11/11/22 02/26/22 07:00 atorvastatin 10 mg tablet 10 mg PO HS 05/23/21 11/11/22 02/25/22 19:00 cholecalciferol (vitamin D3) 10 30 mcg PO QAM 05/23/21 11/11/22 02/17/22 mcg (400 unit) chewable tablet (Vitamin D3) cyanocobalamin (vitamin B-12) 1,000 mcg PO QAM 05/23/21 11/11/22 02/17/22 1,000 mcg tablet,extended release (Vitamin B-12 ER) duloxetine 60 mg capsule,delayed 90 mg PO HS 05/23/21 11/11/22 02/25/22 19:00 release losartan 100 1 tab PO QAM 05/23/21 11/11/22 02/26/22 07:00 mg-hydrochlorothiazide 25 mg tablet omeprazole 20 mg capsule,delayed 20 mg PO QAM 05/23/21 11/11/22 02/26/22 07:00 release vitamin E 268 mg (400 unit) capsule 400 unit PO QAM 05/23/21 11/11/22 02/17/22 amlodipine 5 mg tablet 5 mg PO HS 02/15/22 11/11/22 02/25/22 19:00 ascorbic acid (vitamin C) 500 mg 500 mg PO QAM 02/15/22 11/11/22 02/17/22 tablet (Vitamin C) clonidine HCl 0.1 mg tablet 0.1 mg PO BID 02/15/22 11/11/22 02/26/22 07:00 coenzyme Q10 400 mg capsule (Co 400 mg PO QAM 02/15/22 11/11/22 02/17/22 Q-10) cranberry 1,000 mg capsule 1,500 mg PO QAM 02/15/22 11/11/22 02/17/22 diltiazem HCl 300 mg 300 mg PO QAM 02/15/22 11/11/22 02/26/22 07:00 tablet,extended release 24 hr hydroxyzine pamoate 50 mg capsule 50 mg PO 02/15/22 11/11/22 02/25/22 19:00 lactobacillus combination no.4 3 3,000 mmu cells PO QAM 02/15/22 11/11/22 02/17/22 billion cell capsule (Probiotic) mometasone-formoterol HFA 100 2 puff inhalation BID 02/15/22 11/11/22 02/26/22 07:00 mcg-5 mcg/actuation aerosol inhaler (Dulera) cefadroxil 500 mg capsule 500 mg PO BID #28 caps 02/27/22 11/11/22 Unknown oxycodone 5 mg tablet 5 mg PO Q4H PRN pain #30 tabs 02/27/22 11/11/22 Unknown lorazepam 0.5 mg tablet 0.5 mg PO TID PRN Anxiety 03/27/22 11/11/22 Unknown ipratropium 0.5 mg-albuterol 3 mg 3 ml inhalation TID PRN Shortness 11/11/22 11/11/22 Unknown (2.5 mg base)/3 mL nebulization Of Breath soln ibuprofen PRN Pain 11/18/22 Unknown naproxen PRN Pain 11/18/22 Unknown psyllium husk 0.4 gram capsule 0.4 g PO DAILY PRN Incontinence 11/18/22 11/18/22 Unknown (Metamucil) Additional Notes: Pt was instructed to discuss ibuprofen and naproxen with surgeon's office. Pt was advised NOT take metamucil day of surgery, this was also written on provided medication instructions. He verbalized understanding and denied questions, concerns or additional medications or OTC. Past Medical History Medical History (Updated 11/18/22 @ 10:48 by Socorro Neff PA-C) Anxiety and depression Chronic back pain Degenerative disc disease Dyspnea on exertion - Associated occ cough and wheezing, at times waking from sleep; ongoing since COVID illness, denies change or worsening. - Seen by pulm- had ECHO and CT scan (no issues); PFT showed reactive airway disease in smaller airways- believes long Covid symptoms- added Advair to regimen GERD (gastroesophageal reflux disease) Well controlled, stable, denies issues laying flat Gout History of COVID-19 05/2021; cough, sob, fever, body aches, chills, loss of taste/smell; residual dyspnea on exertion, impaired sense of taste and smell Hx of fracture L4-L5 fracture Hx of gastric ulcer 2017, 3 units PRBCs transfusion Hx SBO Post-op lumbar fusion, adhesion lysis ([facility]), reports well recovered without further issues Hyperlipidemia Hypertension controlled, stable per pt Incontinent of feces At times (takes Metamucil and follows a schedule for maintenance); he states has not needed to take Metamucil for several wks Incontinent of urine At times -- r/t lumbar surgery post op complication with an injury to the spinal cord causing numbness from the chest down but has regained strength to walk. Kidney stones 2017, passed Spinal cord stimulator status Placed 01/2021, has remote. Patient denies h/o stroke, seizures, heart attack, heart failure, DM, or blood clots. Exercise / Class Metabolic Activity II 4-5 Yardwork/Stairs/Walk up hill (shortness of breath with 1 FOS; denies chest discomfort) Past Family History Family History Father FHx: myocardial infarction FHx: hypertension Brother FHx: myocardial infarction FHx: hypertension Other No family history of adverse response to anesthesia Past Surgical History Surgical History (Updated 11/18/22 @ 10:33 by Socorro Neff PA-C) H/O arthroscopy of knee bilateral H/O exploratory laparotomy multiple for lysis of adhesions and SBO/twisted bowel H/O hernia repair as a child H/O laparoscopy (~2020) lysis of adhesions History of cardiac cath (~2012) x3, last approx. 2016, no stents. [facility]. Official cath report not received. History of colonoscopy History of cystoscopy History of esophagogastroduodenoscopy (EGD) History of lumbar surgery first one in 2010, [facility] [place]; second sx 12/2018. [facility] [place]. r/t lumbar fracture. L4-S1 fusion, significant transfusion. post op complication with an injury to the spinal cord causing numbness from the chest down but able to walk. History of open reduction and internal fixation (ORIF) procedure right arm S/P epidural steroid injection S/P hardware removal right arm S/P insertion of spinal cord stimulator S/P lumbar fusion (~2018) L4-S1 S/P total knee arthroplasty right- [place] 02/26/2022 LMA#5 + PNB; post-op infection and sepsis, 12 weeks IV antibiotics Past Anesthesia History No Hx of Anesthesia Complications and No Family Hx of Anesthesia Complications History of PONV No Hx of PONV and No Hx of Motion Sickness Social History Smoking Status: Former smoker tobacco type: cigarettes Do You Dip or Chew Tobacco: No (HX-QUIT; ADVISED) Smoking End Date: YEARS AGO Hx Alcohol Use: Yes Alcohol type: beer, wine and hard liquor alcohol intake frequency: 0-2 drinks per day (1-3 drinks daily) Hx Substance Use: Yes (MEDICAL CARD) substance use type: marijuana Last Used Substance: Unknown Last Used Substance Other:: DAILY-advised Review of Systems Patient denies chest pain, snoring, witnessed apneas (pt reports a previous negative sleep study), fever, chills, cough, wheezing, or palpitations. Physical Exam Vital Signs Vitals BP 130/82 P 54 TEMP 98.7 SP02 96% on RA RESP 18 Physical Full cervical extension range of motion without pain TMD 3.5 finger breadths Mallampati Score 2 Dentition: intact, denies chipped or loose teeth, caps/crowns, implants or bridges Lungs: normal respiratory effort. Good air movement, clear throughout to auscultation, no adventitious breath sounds Cardiac: regular rate and rhythm, no murmurs noted Carotid arteries: negative bruit bilat Lab Results Anesthesia Preop Results Results Anesthesia Widget: WBC 4.58 K/ul (4.8-10.8) L 11/18/22 Hgb 12.2 g/dl (14.0-18.0) L 11/18/22 Hct 36.0 % (42.0-52.0) L 11/18/22 Plt 297 K/uL (130-400) 11/18/22 Na 140 mmol/L (136-145) 11/18/22 K 3.9 mmol/L (3.5-5.1) 11/18/22 Cl 107 mmol/L (98-107) 11/18/22 CO2 26 mmol/L (21-32) 11/18/22 BUN 15 mg/dl (6-23) 11/18/22 Creat 0.93 mg/dl (0.6-1.4) 11/18/22 Glucose Level 85 mg/dl (70-99(Fasting)) 11/18/22 PT 11.0 Seconds (9.0-12.0) 11/18/22 PTT 25.9 Seconds (21.0-31.0) 11/18/22 INR 1.0 (0.9-1.1) 11/18/22 Urine Color Yellow 11/18/22 Urine Appearance Clear (Clear) 11/18/22 Urine pH 7.5 (4.5-7.5) 11/18/22 Urine Specific Leonard 1.019 (1.000-1.030) 11/18/22 Urine Protein Negative (Negative) 11/18/22 Urine Glucose (UA) Negative (Negative) 11/18/22 Urine Ketones Negative (Negative) 11/18/22 Urine Blood Negative (Negative) 11/18/22 Urine Nitrite Negative (Negative) 11/18/22 Urine Bilirubin Negative (Negative) 11/18/22 Urine Urobilinogen Negative (Negative) 11/18/22 Urine Leukocyte Esterase Trace (Negative) H 11/18/22 Urine WBC (Auto) 0 /hpf (0-5) 11/18/22 Urine RBC (Auto) 0-4 /hpf (0-4) 11/18/22 Urine Hyaline Casts (Auto) 1-5 /lpf (0-5) 11/18/22 Urine Epithelial Cells (Auto) 10-20 /lpf (0-5) H 11/18/22 Urine Bacteria (Auto) Negative (Negative) 11/18/22 Blood Type A Positive 11/18/22 Antibody Screen NEGATIVE 11/18/22 Testing Electrocardiogram Date: 11/18/22 NSR, rate 62 bpm Echocardiogram Date: 11/22/21 EF 60% No obvious RWMA Technically difficult study Aortic root 3.9 cm at the sinuses No significant valvular pathology Pulmonary Function Test Date: 11/23/21 Essentially normal PFTs with significant bronchodilator response seen in the mid flow rates...could be seen in small airway disease such as bronchial asthma...course of bronchodilators can be given based on above PFT results if clinically indicated Other Testing Chest CTA 03/25/22 Negative for pulmonary embolus Negative for aortic dissection Clear lung zones COVID-19 Risk Screen Screening Information COVID-19 Screen Date: 11/18/22 Exposure 21 Days Family/Household +COVID Last 21 Days: No Exposure 10 Days Any COVID Exposure Last 10 Days: No Symptoms Last 10 Days Experienced COVID Sx Last 10 Days: No + COVID 0-90 Days COVID + in Last 0-90 Days: No
[~2022-12-02 06:22] MED LIST changes: -BUPIVACAINE 0.5 % 5 MG/1 ML PF 10ML VIAL ONE; +CeleBREX 200 MG CAP PO SCH; -FAMOTIDINE 20 MG TAB PO SCH; +LR 15ML/HR IV SCH; -LR 500ML BOLUS, THEN 15ML/HR IV SCH; -METOCLOPRAMIDE HCL 10 MG TABLET PO SCH; -ROPIVACAINE 0.5% 5 MG/ML 30 ML VIAL ONE; -ROPIVACAINE 0.5% HCL/PF 150 MG, BUPIVACAINE 0.75% MPF 20 ML, EPINEPHrine 30MG/30ML (OR ... INFIL SCH; -TRANEXAMIC ACID 1,000 MG **IV Intra-op IV SCH; -TRANEXAMIC ACID 1,000 MG **IV Pre-op IV SCH; -dexAMETHasone 4 MG TAB PO SCH
[2022-12-02] MEDS ORDERED: BUPIVACAINE/EPINEPHRINE 0.25% 1:200,000 30 ML VIAL ONE (07:03)
[2022-12-02] MEDS ORDERED: ceFAZolin 330 MG/ML 1 GM VIAL ONE (07:03)
[2022-12-02] MEDS ORDERED: ROCURONIUM BROMIDE 10 MG/ML 5 ML VIAL IV ONE ×14 (07:18→09:42)
[2022-12-02] MEDS ORDERED: SUCCINYLCHOLINE CHLORIDE 20 MG/ML 10 ML VIAL IV ONE (07:18)
[2022-12-02] MEDS ORDERED: fentaNYL citrate PF 100 MCG/2 ML VIAL ONE (07:18)
[2022-12-02] MEDS ORDERED: PROPOFOL IV EMULSION 10 MG/ML 20 ML VIAL IV ONE ×2 (07:18→10:04)
[2022-12-02] MEDS ORDERED: MIDAZOLAM HCL 1 MG/ML 2ML VIAL ONE (07:18)
[2022-12-02] MEDS ORDERED: ALBUTEROL 0.083% NEBU SOLN 3 ML VIAL INH PRN (07:25)
[2022-12-02] MEDS ORDERED: ACETAMINOPHEN 1,000 MG/100 ML VIAL IV STA (07:25)
[2022-12-02] MEDS ORDERED: LABETALOL HCL IV 5 MG/ML 20ML IV PRN (07:25)
[2022-12-02] MEDS ORDERED: ATROPINE SULFATE 0.1 MG/ML 10ML SYR IV PRN ×2 (07:25→11:25)
[2022-12-02] MEDS ORDERED: ePHEDrine sulfate 50 MG/ML AMP IV PRN ×2 (07:25→11:25)
[2022-12-02] MEDS ORDERED: ONDANSETRON INJ 2 MG/ML 2 ML VIAL IV PRN ×2 (07:25→12:32)
[2022-12-02] MEDS ORDERED: ONDANSETRON INJ 2 MG/ML 2 ML VIAL ONE (07:29)
[2022-12-02] MEDS ORDERED: DEXAMETHASONE SOD INJ 4 MG/ML VIAL ONE ×3 (07:29→08:35)
--- NOTE | 2022-12-02 07:41 | History & Physical Bridge Note ---
Date of Service December 02, 2022 History & Physical Bridge Note I have examined the patient, reviewed the History & Physical and in the interval since the performance of the History & Physical I have noted the following changes of clinical significance: no changes noted
--- NOTE | 2022-12-02 07:42 | History & Physical Report ---
Date of Service December 02, 2022 Assessment & Plan (1) Neurogenic claudication due to lumbar spinal stenosis: Plan: L L1-L2 decompression, T11 L2 fusion connecting to old hardware History of Present Illness Chief Complaint: Bilateral leg pain Primary Care Provider: Ian Munoz This is a 57-year-old male who presents with chronic system back and leg pain after failing course of nonoperative care is here for surgical invention. Allergies Allergy/AdvReac Type Severity Reaction Status Date / Time No Known Allergies Allergy Verified 12/02/22 06:46 Home Medications Medication Instructions Recorded Confirmed Type allopurinol 100 mg tablet 100 mg PO BID 05/23/21 11/11/22 History atorvastatin 10 mg tablet 10 mg PO HS 05/23/21 12/02/22 History cholecalciferol (vitamin D3) 10 30 mcg PO QAM 05/23/21 12/02/22 History mcg (400 unit) chewable tablet (Vitamin D3) cyanocobalamin (vitamin B-12) 1,000 mcg PO QAM 05/23/21 12/02/22 History 1,000 mcg tablet,extended release (Vitamin B-12 ER) duloxetine 60 mg capsule,delayed 90 mg PO HS 05/23/21 12/02/22 History release losartan 100 1 tab PO QAM 05/23/21 12/02/22 History mg-hydrochlorothiazide 25 mg tablet omeprazole 20 mg capsule,delayed 20 mg PO QAM 05/23/21 11/11/22 History release vitamin E 268 mg (400 unit) capsule 400 unit PO QAM 05/23/21 12/02/22 History amlodipine 5 mg tablet 5 mg PO HS 02/15/22 12/02/22 History ascorbic acid (vitamin C) 500 mg 500 mg PO QAM 02/15/22 12/02/22 History tablet (Vitamin C) clonidine HCl 0.1 mg tablet 0.1 mg PO BID 02/15/22 11/11/22 History coenzyme Q10 400 mg capsule (Co 400 mg PO QAM 02/15/22 12/02/22 History Q-10) cranberry 1,000 mg capsule 1,500 mg PO QAM 02/15/22 12/02/22 History diltiazem HCl 300 mg 300 mg PO QAM 02/15/22 11/11/22 History tablet,extended release 24 hr hydroxyzine pamoate 50 mg capsule 50 mg PO HS 02/15/22 12/02/22 History (Vistaril) lactobacillus combination no.4 3 3,000 mmu cells PO QAM 02/15/22 12/02/22 History billion cell capsule (Probiotic) mometasone-formoterol HFA 100 2 puff inhalation BID 02/15/22 12/02/22 History mcg-5 mcg/actuation aerosol inhaler (Dulera) oxycodone 5 mg tablet 5 mg PO Q4H PRN pain #30 tabs 02/27/22 12/02/22 Rx lorazepam 0.5 mg tablet 0.5 mg PO TID PRN Anxiety 03/27/22 12/02/22 History ipratropium 0.5 mg-albuterol 3 mg 3 ml inhalation TID PRN Shortness 11/11/22 12/02/22 History (2.5 mg base)/3 mL nebulization Of Breath soln ibuprofen PRN Pain 11/18/22 History psyllium husk 0.4 gram capsule 0.4 g PO DAILY PRN Incontinence 11/18/22 12/02/22 History (Metamucil) albuterol sulfate 90 mcg/actuation See Rx Instructions .Route .COMPLEX 12/02/22 12/02/22 History aerosol inhaler Past Med/Surg History Medical History (Updated 12/02/22 @ 07:41 by Fermin Dejesus, ) Anxiety and depression Chronic back pain Degenerative disc disease Dyspnea on exertion - Associated occ cough and wheezing, at times waking from sleep; ongoing since COVID illness, denies change or worsening. - Seen by pulm- had ECHO and CT scan (no issues); PFT showed reactive airway disease in smaller airways- believes long Covid symptoms- added Advair to regimen GERD (gastroesophageal reflux disease) Well controlled, stable, denies issues laying flat Gout History of COVID-19 05/2021; cough, sob, fever, body aches, chills, loss of taste/smell; residual dyspnea on exertion, impaired sense of taste and smell Hx of fracture L4-L5 fracture Hx of gastric ulcer 2017, 3 units PRBCs transfusion Hx SBO Post-op lumbar fusion, adhesion lysis (Dr. Abdoulaye Rogers), reports well recovered without further issues Hyperlipidemia Hypertension controlled, stable per pt Incontinent of feces At times (takes Metamucil and follows a schedule for maintenance); he states has not needed to take Metamucil for several wks Incontinent of urine At times -- r/t lumbar surgery post op complication with an injury to the spinal cord causing numbness from the chest down but has regained strength to walk. Kidney stones 2017, passed Spinal cord stimulator status Placed 01/2021, has remote. Surgical History H/O arthroscopy of knee bilateral H/O exploratory laparotomy multiple for lysis of adhesions and SBO/twisted bowel H/O hernia repair as a child H/O laparoscopy (~2020) lysis of adhesions History of cardiac cath (~2012) x3, last approx. 2015, no stents. [facility] [place]. Official cath report not received. History of colonoscopy History of cystoscopy History of esophagogastroduodenoscopy (EGD) History of lumbar surgery first one in 2010, [facility]; second sx 12/2018. [facility] r/t lumbar fracture. L4-S1 fusion, significant transfusion. post op complication with an injury to the spinal cord causing numbness from the chest down but able to walk. History of open reduction and internal fixation (ORIF) procedure right arm S/P epidural steroid injection S/P hardware removal right arm S/P insertion of spinal cord stimulator S/P lumbar fusion (~2018) L4-S1 S/P total knee arthroplasty right- [place] 02/26/2022 LMA#5 + PNB; post-op infection and sepsis, 12 weeks IV antibiotics Family History Father FHx: myocardial infarction FHx: hypertension Brother FHx: myocardial infarction FHx: hypertension Other No family history of adverse response to anesthesia Social History Smoking Status: Former smoker Smoking End Date: YEARS AGO; Second Hand Exposure: Yes (HX-YEARS AGO); Do You Dip or Chew Tobacco: No (HX-QUIT; ADVISED); Tobacco Cessation Education Requested by Patient: No Hx Alcohol Use: Yes Alcohol type: beer, wine and hard liquor Hx Substance Use: Yes (MEDICAL CARD) Last Used Substance: Unknown Last Used Substance Other:: DAILY-advised Preferred Language: Marshallese Communication Ability: Effective Customer Support Manager Required: No Beliefs That Will Affect Care: None marital status: Current Living Situation: Spouse Other Information That Helps Us Care for You: No Feels Safe at Home: Yes Safety Concerns: Feels Safe At This Time Assistive Devices: Glasses Assistive Devices Comment: GLASSES PRN Physical Exam Physical Exam: Patient is alert and oriented Heart regular rhythm Lungs clear Results & Data Results & Data Vital Signs (Past 12 Hours) Vital Signs Temp Pulse Resp BP Pulse Ox O2 Del Method 12/02/22 06:59 37.1 C 88 20 142/97 H 97 Room Air
[2022-12-02] MEDS ORDERED: KETAMINE 50 MG/5 ML SYRINGE ONE (08:23)
[2022-12-02] MEDS ORDERED: ePHEDrine sulfate 50 MG/ML SYR ONE (09:28)
[2022-12-02] MEDS ORDERED: PHENYLEPHRINE 100MCG/ML 5ML SYR ONE (09:28)
[2022-12-02] MEDS ORDERED: HYDROmorphone INJ 2 MG/ML SYR/VIAL ONE (10:02)
[2022-12-02] MEDS ORDERED: NEOSTIGMINE METHYLSULFATE 1 MG/ML 10ML VIAL ONE (10:06)
[2022-12-02] MEDS ORDERED: GLYCOPYRROLATE 0.2 MG/ML VIAL ONE ×2 (10:07)
--- NOTE | 2022-12-02 10:17 | Operative Report ---
Post Operative Report Pre & Post Diagnosis Operation Date: 12/02/22 07:45 Pre-Op Diagnosis: Spinal Stenosis, Lumbar Region with Neurogenic Claudication Post-Op Diagnosis: Spinal Stenosis, Lumbar Region with Neurogenic Claudication I identified the patient and participated in the time-out.: Yes Procedure Operation Date: 12/02/22 07:45 Actual Procedures #1 lumbar decompression bilateral medial facetectomies and foraminotomies T12- L1, L1-L2. #2 posterior spinal fusion T11-L2. #3 posterior spinal instrumentation T11-L1 with connectors at L2-L3. #4 interbody fusion L1-L2. #5 placement of Spira 12 x 26 mm cage at L1-L2. #6 placement locally harvested morselized autograft in the posterior gutters. #7 placement of infuse collagen sponge, master graft from T11-L2 and I factor in the interbody space. Surgeon Fermin Dejesus, DO Country Singer Trinidad Duncan Estimated Blood Loss 250 Findings See Below The patient is 6 foot 1 weighing over 123 kg with a BMI in excess of 36. Patient's body was did contribute to significant technical difficulty required deeper retractors longer instruments in order to perform his procedure. This at least 50% increased operative time. Specimens None Indications This is a 57-year-old male who presents above-mentioned diagnosis of failed course of nonoperative care is here for surgical invention. Description of Procedure Patient was met with identified informed consent obtained. Patient was then taken to the operative suite underwent a patient placed in a prone position on the [place] table top Cristhian frame. All bony prominences well-padded eyes inspected to ensure no external pressure placed upon the. This point the thoracolumbar spine was prepped and draped in the normal sterile fashion. Sharp dissection with the assistance of Bovie cautery was formed down to and exposing the lamina and transverse processes of T11 T12-L1 and instrumentation at L2-L3. I then performed a complete laminectomy of L1 partial laminectomy of L2 including bilateral medial facetectomies and foraminotomies addressing severe sp inal stenosis. Pedicle screws were then placed in T11 T12-L1 bilaterally with assistance of fluoroscopy and connectors were placed on the maria a at L2-L3. By way of transforaminal approach on the right a complete discectomy of L1-L2 was performed endplates curetted to subcortically bone and a 12 x 26 mm Spira cage with I factor tapped in position. Appropriate appropriate size rods were then placed and locked in position bilaterally. The transverse processes of T11 T12- L1 and L2 burred to subcortical bleeding bone. Infuse collagen sponge from mass graft locally harvested morselized autograft was then placed in the posterior gutters. 15 round JAVIER drain inserted. The incision was then closed with 1 Vicryl the fascia 2-0 Vicryl subcutaneously and 4 Monocryl for final skin closure. Steri-Strips sterile dressing placed. Patient waken and taken to PACU in stable condition. Please note spinal cord monitoring was utilized at the procedure no changes noted. Lastly Trinidad Duncan was present at the entire surgery involved in patient positioning complex portions of the surgery and final skin closure. I attest to the content of the Intraoperative Record and any orders documented therein. Any exceptions are noted below.
[2022-12-02] MEDS ORDERED: ALBUTEROL HFA 8 GM INHALER INH ONE (10:20)
[2022-12-02] MEDS ORDERED: FLOSEAL HEMOSTATIC MATRIX 10ML TOP ONE (10:29)
[2022-12-02] MEDS: fentaNYL citrate PF 100 MCG/2 ML VIAL IV PRN ×4 (10:47→11:03)
--- NOTE | 2022-12-02 11:01 | Fluoroscopy Report ---
FL lumbar spine 2-3V CLINICAL HISTORY: T11-L2 DFI/CONNECT TO OLD HARDWARE TECHNIQUE: 2 views were obtained with the C-arm in the OR with the above procedure. Total fluoroscopy time was 32 seconds. Radiation dose was 27.67 mGy. Comparison: None available at the time of this dictation. FINDINGS/IMPRESSION: Intraoperative images were obtained of T11-L1 discectomy and fusion. Existing lo wer lumbar hardware is noted. Please correlate with intraoperative fluoroscopy and operative report. ACT 112: Negative or not required by law. Electronically signed by: Clayton Brown M.D. 12/02/2022 10:59 AM
[2022-12-02] MEDS: HYDROmorphone INJ 1 MG/ML SYRINGE IV PRN ×10 (11:20→23:29)
[2022-12-02] MEDS ORDERED: HYDROmorphone INJ 1 MG/ML SYRINGE ONE (11:21)
[2022-12-02] MEDS ORDERED: ALBUT/IPRATROP 3MG/0.5MG NEB 3 ML VIAL INH PRN (12:32)
[2022-12-02] MEDS ORDERED: NALOXONE HCL 0.4 MG/1 ML VIAL/CARP IV PRN (12:32)
[2022-12-02] MEDS ORDERED: FAMOTIDINE 20 MG TAB PO PRN (12:32)
[2022-12-02] MEDS ORDERED: ALUMINUM/MAGNESIUM SUSP 30 ML UDC PO PRN (12:32)
[2022-12-02] MEDS ORDERED: ACETAMINOPHEN 1,000 MG/100 ML VIAL IV PRN (12:32)
[2022-12-02] MEDS ORDERED: HYDROmorphone INJ 0.5 MG/0.5 ML SYR IV PRN (12:32)
[2022-12-02] MEDS ORDERED: bisacodyL 10 MG SUPP PR PRN (12:32)
[2022-12-02] MEDS ORDERED: SOD PHOSPHATE/SOD BIPHOSPHATE ENEMA 132 ML BTL PR PRN (12:32)
[2022-12-02] MEDS ORDERED: ACETAMINOPHEN 500 MG TAB PO PRN (12:32)
[2022-12-02] MEDS ORDERED: DO NOT ADMINISTER FLU VACCINE PRN (12:32)
[2022-12-02] MEDS ORDERED: METOCLOPRAMIDE HCL INJ 5 MG/ML 2 ML VIAL IV PRN (12:32)
[2022-12-02] MEDS ORDERED: hydrOXYzine HCl 25 MG TAB PO PRN (12:32)
[2022-12-02] MEDS ORDERED: PROMETHAZINE HCL 12.5 MG in SODIUM CHLORIDE 0.9% 50 ML IV PRN (12:32)
[2022-12-02] MEDS ORDERED: traMADol HCL 50 MG TABLET PO PRN (12:32)
[2022-12-02] MEDS ORDERED: DO NOT ADMINISTER PNEUMOCOCCAL VACCINE PRN (12:32)
[2022-12-02] MEDS ORDERED: ONDANSETRON 4 MG OD TAB PO PRN (12:32)
[2022-12-02] MEDS ORDERED: LORazepam 2 MG/1 ML VIAL IV PRN (12:32)
--- NOTE | 2022-12-02 12:33 | Anesthesiology Progress Note ---
Date of Service December 02, 2022 Anesthesia Post Procedure Vital Signs Vital Signs: Temp Pulse Pulse Resp BP BP Pulse Ox 12/02/22 12:15 63 12 141/85 H 95 12/02/22 12:05 36.9 C 83 14 139/89 100 12/02/22 11:55 88 20 128/93 100 12/02/22 11:45 68 19 149/82 H 100 12/02/22 11:35 79 15 134/79 100 12/02/22 11:25 82 14 131/89 100 12/02/22 11:15 70 12 153/84 H 100 12/02/22 11:05 87 17 119/82 100 12/02/22 10:55 89 19 111/81 100 12/02/22 10:45 89 12 148/90 H 97 12/02/22 10:38 36.0 C L 98 H 14 161/94 H 100 12/02/22 06:59 37.1 C 88 20 142/97 H 97 O2 Del Method O2 Flow Rate 12/02/22 12:15 Room Air 12/02/22 12:05 Room Air 12/02/22 11:55 Room Air 12/02/22 11:45 Room Air 12/02/22 11:35 Room Air 12/02/22 11:25 Room Air 12/02/22 11:15 Oxymask 4 12/02/22 11:05 Oxymask 4 12/02/22 10:55 Nebulizer 15 12/02/22 10:45 Oxymask 9 12/02/22 10:38 Oxymask 9 12/02/22 06:59 Room Air Pain Intensity Bilateral Back: Pain Intensity: 5 Transfer of Care Handoff Completed per policy Notes Mental Status: alert / awake / arousable Patient Amnestic to Procedure: Yes Nausea / Vomiting: adequately controlled Pain: adequately controlled Airway Patency, RR, SpO2: stable & adequate BP & HR: stable & adequate Hydration State: stable & adequate Anesthetic Complications: no major complications apparent and Pt Satisfied with anesthetic care
[2022-12-02] MEDS ORDERED: CALCIUM POLYCARBOPHIL 625MG TAB PO PRN (12:43)
--- NOTE | 2022-12-02 13:00 | Hospitalist Consultation ---
Date of Consultation December 02, 2022 Assessment & Plan (1) Neurogenic claudication due to lumbar spinal stenosis: (2) S/P lumbar fusion: (3) Spinal cord stimulator status: - Pain management, bowel regimen and DVT ppx per the primary team - PT/OT consults - Spinal stimulator to resume per primary team, currently is turned off - Follow am CBC to monitor for acute blood loss, last hgb was 12.2, HCT 36.0 (4) Hypertension: - Clonidine 0.1 mg BID, losartan/HCTZ QAM, amlodipine 5 mg HS, diltiazem 100 mg QAM (5) Hyperlipidemia: - Atorvastatin 10 mg HS (6) Anxiety and depression: - Continue on duloxetine 90 mg daily, vistaril 50 mg HS, lorazepam 0.5 mg TID prn - Reports that he does take a medical marijuana pill, hold this currently DVT ppx: - teds, scds CODE: Full code Dispo: From home, likely to remain in the hospital x 1-2 days Thank you for involving us in the care of Mr. Wallace. If you have any questions or concerns please do not hesitate to call. At this time medicine will follow along. A total of 35 minutes were spent with greater than 50% of that time face to face with the patient, personally reviewing all current laboratories, imaging studies, past medication reconciliation, outpatient chart review, and discussion with specialists to collaborate care for the patient with attending. Please see attending documentation for corrections and/or additions. Supervising Physician Co-Signing Physician Notes Patient was seen and examined independently. Chart reviewed. Case discussed with NEHEMIAS History of Present Illness Reason for Consultation: Medical management Requesting Physician: Dr. Dejesus Attending Physician: Fermin Dejesus, History of Present Illness This is a 57 yo M with PMhx of Chronic back pain, spinal cord stimulator in place since January 2021, HTN, HLD, gastric ulcer, history of SBO, anxiety and depression who presents to the hospital for elective lumbar spinal decompression by Dr. Dejesus on 12/02/2022. Initially developed back issues in 2007 after breaking his back from falling off of a tractor trailer bed, and then it was first operated on in 2009. He reports having a surgery on his back in December 2018 in [facility] where his spinal column was cut and suffered significant postoperative trauma with near experience, multiple units of blood, surgical revisions, neuropathy, SBO, and rehab. He then had a spinal stimulator placed in January 2021. Pt does not have it turned on currently, but is questioning when this can be resumed after surgery today. His pain is currently rated an 8/10, he has received IV Dilaudid times multiple doses, total of 100 mcg of fentanyl, and still reports his pain is significantly high. He admits to having trouble controlling his pain, uses tramadol and oxycodone at home routinely. His bowels move this morning prior to surgery. He has tolerated sips of water without difficulty, no nausea, no vomiting. He lives at home with his , from the [facility]. Occasional alcohol use 3-4 beers with dinner, 2-3x per week. Uses medical marijuana pill 10 mg daily as needed for pain. Denies tobacco use. Allergies Allergy/AdvReac Type Severity Reaction Status Date / Time No Known Allergies Allergy Verified 12/02/22 06:46 Home Medications Medication Instructions Recorded Confirmed Type allopurinol 100 mg tablet 100 mg PO BID 05/23/21 11/11/22 History atorvastatin 10 mg tablet 10 mg PO HS 05/23/21 12/02/22 History cholecalciferol (vitamin D3) 10 30 mcg PO QAM 05/23/21 12/02/22 History mcg (400 unit) chewable tablet (Vitamin D3) cyanocobalamin (vitamin B-12) 1,000 mcg PO QAM 05/23/21 12/02/22 History 1,000 mcg tablet,extended release (Vitamin B-12 ER) duloxetine 60 mg capsule,delayed 90 mg PO HS 05/23/21 12/02/22 History release losartan 100 1 tab PO QAM 05/23/21 12/02/22 History mg-hydrochlorothiazide 25 mg tablet omeprazole 20 mg capsule,delayed 20 mg PO QAM 05/23/21 11/11/22 History release vitamin E 268 mg (400 unit) capsule 400 unit PO QAM 05/23/21 12/02/22 History amlodipine 5 mg tablet 5 mg PO HS 02/15/22 12/02/22 History ascorbic acid (vitamin C) 500 mg 500 mg PO QAM 02/15/22 12/02/22 History tablet (Vitamin C) clonidine HCl 0.1 mg tablet 0.1 mg PO BID 02/15/22 11/11/22 History coenzyme Q10 400 mg capsule (Co 400 mg PO QAM 02/15/22 12/02/22 History Q-10) cranberry 1,000 mg capsule 1,500 mg PO QAM 02/15/22 12/02/22 History diltiazem HCl 300 mg 300 mg PO QAM 02/15/22 11/11/22 History tablet,extended release 24 hr hydroxyzine pamoate 50 mg capsule 50 mg PO HS 02/15/22 12/02/22 History (Vistaril) lactobacillus combination no.4 3 3,000 mmu cells PO QAM 02/15/22 12/02/22 History billion cell capsule (Probiotic) mometasone-formoterol HFA 100 2 puff inhalation BID 02/15/22 12/02/22 History mcg-5 mcg/actuation aerosol inhaler (Dulera) oxycodone 5 mg tablet 5 mg PO Q4H PRN pain #30 tabs 02/27/22 12/02/22 Rx lorazepam 0.5 mg tablet 0.5 mg PO TID PRN Anxiety 03/27/22 12/02/22 History ipratropium 0.5 mg-albuterol 3 mg 3 ml inhalation TID PRN Shortness 11/11/22 12/02/22 History (2.5 mg base)/3 mL nebulization Of Breath soln psyllium husk 0.4 gram capsule 0.4 g PO DAILY PRN Incontinence 11/18/22 12/02/22 History (Metamucil) albuterol sulfate 90 mcg/actuation See Rx Instructions .Route .COMPLEX 12/02/22 12/02/22 History aerosol inhaler fexofenadine 180 mg tablet 180 mg PO DAILY 12/02/22 12/02/22 History (Alejandra Allergy) fluticasone fur. 200 mcg-umeclid 1 inh inhalation DAILY 12/02/22 12/02/22 History 62.5 mcg-vilant 25 mcg inhalat.powder (Trelegy Ellipta) montelukast 10 mg tablet 10 mg PO DAILY 12/02/22 12/02/22 History (Singulair) oxycodone 5 mg tablet 5 mg PO DAILY PRN pain #30 tabs 12/02/22 Rx tramadol 50 mg tablet 50 mg PO QID 12/02/22 12/02/22 History Patient History Medical History (Updated 12/02/22 @ 12:57 by Ara Messer PA-C) Anxiety and depression Chronic back pain Degenerative disc disease Dyspnea on exertion - Associated occ cough and wheezing, at times waking from sleep; ongoing since COVID illness, denies change or worsening. - Seen by pulm- had ECHO and CT scan (no issues); PFT showed reactive airway disease in smaller airways- believes long Covid symptoms- added Advair to regimen GERD (gastroesophageal reflux disease) Well controlled, stable, denies issues laying flat Gout History of COVID-19 05/2021; cough, sob, fever, body aches, chills, loss of taste/smell; residual dyspnea on exertion, impaired sense of taste and smell Hx of fracture L4-L5 fracture Hx of gastric ulcer 2017, 3 units PRBCs transfusion Hx SBO [place] reports well recovered without further issues Hyperlipidemia Hypertension controlled, stable per pt Incontinent of feces At times (takes Metamucil and follows a schedule for maintenance); he states has not needed to take Metamucil for several wks Incontinent of urine At times -- r/t lumbar surgery post op complication with an injury to the spinal cord causing numbness from the chest down but has regained strength to walk. Kidney stones 2016, passed Spinal cord stimulator status Placed 01/2021, has remote. Surgical History H/O arthroscopy of knee bilateral H/O exploratory laparotomy multiple for lysis of adhesions and SBO/twisted bowel H/O hernia repair as a child H/O laparoscopy (~2020) lysis of adhesions History of cardiac cath (~2012) x3, last approx. 2016, no stents. [facility]. Official cath report not received. History of colonoscopy History of cystoscopy History of esophagogastroduodenoscopy (EGD) History of lumbar surgery first one in 2010, [facility]; second sx 12/2018. [facility]. r/t lumbar fracture. L4-S1 fusion, significant transfusion. post op complication with an injury to the spinal cord causing numbness from the chest down but able to walk. History of open reduction and internal fixation (ORIF) procedure right arm S/P epidural steroid injection S/P hardware removal right arm S/P insertion of spinal cord stimulator S/P lumbar fusion (~2018) L4-S1 S/P total knee arthroplasty right- [place] 02/26/2022 LMA#5 + PNB; post-op infection and sepsis, 12 weeks IV antibiotics Family History Father FHx: myocardial infarction FHx: hypertension Brother FHx: myocardial infarction FHx: hypertension Other No family history of adverse response to anesthesia Social History Smoking Status: Former smoker Smoking End Date: YEARS AGO; Second Hand Exposure: Yes (HX-YEARS AGO); Do You Dip or Chew Tobacco: No (HX-QUIT; ADVISED); Tobacco Cessation Education Requested by Patient: No Hx Alcohol Use: Yes Alcohol type: beer, wine and hard liquor Hx Substance Use: Yes (MEDICAL CARD) Last Used Substance: Unknown Last Used Substance Other:: DAILY-advised Preferred Language: Jamaican Communication Ability: Effective Wire Fence Erector Required: No Beliefs That Will Affect Care: None marital status: Current Living Situation: Spouse Other Information That Helps Us Care for You: No Feels Safe at Home: Yes Safety Concerns: Feels Safe At This Time Assistive Devices: Cane and Walker Assistive Devices Comment: GLASSES PRN Review of Systems Review of Systems: Constitutional: No fever, sweats or chills Eyes: No diplopia, no worsening or blurred vision ENT: normal hearing, no trouble swallowing Respiratory: No cough, sputum, dyspnea at rest or on exertion Cardiovascular: No chest pain, tightness or palpitations Abdomen: No pain, nausea, vomiting, diarrhea or constipation Back: As per HPI Musculoskeletal: No joint pain, calf pain, swelling Neurologic: No weakness, + 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 status post previous spinal surgeries, no new numbness/tingling, or balance problems Psychiatric: + Anxiety or depression, on medication for 7 Skin: No rash or itch Physical Exam Physical Exam: General: awake, alert, no apparent distress, + obese, BMI 36 Head: Normocephalic, atraumatic ENT: PERRL, EOMI, no pharyngeal exudate, mucous membranes moist Chest: Clear to auscultation, on room air, no adventitious breath sounds Cardiac: Regular rate and rhythm, no murmur, no JVD, normal peripheral pulses, good capillary refill Abdominal: NABS x 4 quadrants, soft, nondistended, nontender to palpation, no rebound or guarding Back: Dressing C/D/I, JAVIER drain in place Extremities: Normal inspection, no peripheral edema or erythema, calfs nontender to palpation Psych: Normal mood and affect Neuro: AAO x 3, strength intact bilaterally and rated 5/5, no motor deficits, speech is clear, no peripheral sensory deficits Results & Data Results & Data Vital Signs (Past 12 Hours) Vital Signs Temp Pulse Pulse Resp BP BP Pulse Ox 12/02/22 12:30 36.8 C 84 16 150/92 H 97 12/02/22 12:15 63 12 141/85 H 95 12/02/22 12:05 36.9 C 83 14 139/89 100 12/02/22 11:55 88 20 128/93 100 12/02/22 11:45 68 19 149/82 H 100 12/02/22 11:35 79 15 134/79 100 12/02/22 11:25 82 14 131/89 100 12/02/22 11:15 70 12 153/84 H 100 12/02/22 11:05 87 17 119/82 100 12/02/22 10:55 89 19 111/81 100 12/02/22 10:45 89 12 148/90 H 97 12/02/22 10:38 36.0 C L 98 H 14 161/94 H 100 12/02/22 06:59 37.1 C 88 20 142/97 H 97 O2 Del Method O2 Flow Rate 12/02/22 12:30 Room Air 12/02/22 12:15 Room Air 12/02/22 12:05 Room Air 12/02/22 11:55 Room Air 12/02/22 11:45 Room Air 12/02/22 11:35 Room Air 12/02/22 11:25 Room Air 12/02/22 11:15 Oxymask 4 12/02/22 11:05 Oxymask 4 12/02/22 10:55 Nebulizer 15 12/02/22 10:45 Oxymask 9 12/02/22 10:38 Oxymask 9 12/02/22 06:59 Room Air
[2022-12-02] MEDS: LACTATED RINGER'S 1,000 ML IV SCH ×2 (13:12→19:05)
[2022-12-02] MEDS: oxyCODONE HCL IR 5 MG TAB (IMMEDIATE RELEASE) PO PRN ×2 (13:23→21:34)
[2022-12-02] MEDS: ALBUTEROL HFA 8 GM INHALER INH SCH ×2 (15:21→21:28)
[2022-12-02] MEDS: ceFAZolin 2000MG 2,000 MG/15 ML SYR IV SCH ×2 (17:00→23:29)
[2022-12-02] MEDS: FLUTICASONE PROPIONATE NA SPR 16 GM BTL SCH (18:35)
[2022-12-02] MEDS: MONTELUKAST SODIUM 10 MG TABLET PO SCH (18:35)
[2022-12-02] MEDS: cloNIDine HCL 0.1 MG TAB PO SCH (21:33)
[2022-12-02] MEDS: allopurinoL 100 MG TAB PO SCH (21:33)
[2022-12-02] MEDS: ATORVASTATIN 10 MG TAB PO SCH (21:34)
[2022-12-02] MEDS: diphenhydrAMINE Capsule 25 MG CAP PO PRN (21:34)
[2022-12-02] MEDS: hydrOXYzine HCl 25 MG TAB PO SCH (21:34)
[2022-12-02] MEDS: DULoxetine HCL 30 MG CAP PO SCH (21:34)
[2022-12-02] MEDS: DOCUSATE SODIUM/SENNA 50/8.6MG TAB PO SCH (21:34)
[2022-12-02] MEDS: FLUTICASONE/VILANTEROL 100/25MCG 14 PUFFS/INHALER INH SCH (21:35)
[2022-12-02] MEDS: amLODIPine BESYLATE 5 MG TAB PO SCH (21:35)
[2022-12-03] MEDS: ALBUTEROL HFA 8 GM INHALER INH SCH ×4 (01:55→20:31)
[2022-12-03] MEDS: oxyCODONE HCL IR 5 MG TAB (IMMEDIATE RELEASE) PO PRN ×5 (05:02→21:28)
[2022-12-03] MEDS: HYDROmorphone INJ 1 MG/ML SYRINGE IV PRN ×5 (06:18→20:53)
[2022-12-03] MEDS: POLYETHYLENE (MIRALAX) 17 GM PACK PO SCH ×3 (06:18→17:13)
[2022-12-03 08:20] LABS: BUN Creatinine Ratio 14.6 (10-20); Calcium 8.5 mg/dl (8.6-10.3); Creatinine Clr Calc Pharmacy 127.7 ml/min; Est GFR (African American) 110.8 ml/min; Est GFR (Non-African American) 95.6 ml/min; Potassium 3.9 mmol/L (3.5-5.1)
[2022-12-03 08:33] LABS: Basophils # (auto) 0.01 K/uL (0-0.2); Basophils % (auto) 0.1 %; Hemoglobin 10.6 g/dl (14.0-18.0); Immature Granulocytes # (auto) 0.04 K/uL (0.01-0.20); Immature Granulocytes % (auto) 0.5 %; Lymphocytes # (auto) 0.61 K/uL (1.2-3.4); Lymphocytes % (auto) 7.1 %; Mean Corpuscular Hemoglobin 30.5 pg (25.0-34.0); Mean Corpuscular Hgb Conc 34.2 g/dL (32.0-36.0); Mean Corpuscular Volume 89.3 fL (80.0-100.0); Mean Platelet Volume 9.6 fL (9.4-12.4); Monocytes # (auto) 0.65 K/uL (0.11-0.59); Monocytes % (auto) 7.5 %; Neutrophils # (auto) 7.33 K/uL (1.40-6.50); Neutrophils % (auto) 84.8 %; Platelet Count 283 K/uL (130-400); RDW Coefficient of Variation 12.3 % (11.5-14.5); RDW Standard Deviation 39.9 fL (36.4-46.3); Red Blood Count 3.47 M/uL (4.70-6.10); White Blood Count 8.64 K/ul (4.8-10.8)
[2022-12-03] MEDS: CYANOCOBALAMIN (B-12) 500 MCG TABLET PO SCH (08:34)
[2022-12-03] MEDS: dilTIAZem HCL 300 MG CAPCR PO SCH (08:34)
[2022-12-03] MEDS: ASCORBIC ACID 500 MG TAB PO SCH (08:34)
[2022-12-03] MEDS: LOSARTAN/HCTZ 50/12.5MG TAB PO SCH (08:34)
[2022-12-03] MEDS: FLUTICASONE PROPIONATE NA SPR 16 GM BTL SCH (08:35)
[2022-12-03] MEDS: cloNIDine HCL 0.1 MG TAB PO SCH ×2 (08:35→20:46)
[2022-12-03] MEDS: allopurinoL 100 MG TAB PO SCH ×2 (08:35→20:47)
[2022-12-03] MEDS: CHOLECALCIFEROL 400 UNITS 10 MCG TAB PO SCH (08:35)
[2022-12-03] MEDS: PANTOprazole 40 MG TAB PO SCH (08:35)
[2022-12-03] MEDS: dexAMETHasone 6 MG in SYRINGE 0 ML IV SCH (08:36)
[2022-12-03] MEDS: MONTELUKAST SODIUM 10 MG TABLET PO SCH (08:36)
[2022-12-03] MEDS ORDERED: COENZYME Q10 400 MG PO SCH (09:00)
[2022-12-03] MEDS: MAGNESIUM HYDROXIDE SUSP 30 ML UDC PO PRN (09:13)
--- NOTE | 2022-12-03 11:13 | Orthopedic Progress Note ---
Date of Service December 03, 2022 Assessment & Plan (1) Neurogenic claudication due to lumbar spinal stenosis: Plan: This time we will continue physical therapy monitor his JAVIER operatively discharge home in next few days. Admission and Anticipated Discharge Date Admission Date: December 02, 2022 Subjective Back pain is controlled leg symptoms markedly improved Physical Exam Physical Exam: Patient is in the chair at the bedside. Is comfortable. Skin strength testing. Results & Data Vital Signs (Past 12 Hours) Vital Signs Temp Pulse Pulse Resp BP Pulse Ox O2 Del Method 12/03/22 07:51 36.8 C 90 16 147/88 H 97 Room Air 12/03/22 07:13 75 16 96 Room Air 12/03/22 02:42 36.8 C 89 18 139/74 96 Room Air
[2022-12-03] MEDS: diphenhydrAMINE Capsule 25 MG CAP PO PRN (11:29)
--- NOTE | 2022-12-03 15:13 | Hospitalist Progress Note ---
Date of Service December 03, 2022 Assessment & Plan (1) Neurogenic claudication due to lumbar spinal stenosis: (2) S/P lumbar fusion: (3) Spinal cord stimulator status: Plan: Pain management, bowel regimen and DVT ppx per the primary team Spinal stimulator to resume per primary team, currently is turned off Hb is 10.6 today. Last hgb was 12.2 two weeks ago Possible post op anemia from blood loss + dilutional. However, Hb had been in 10 the past Recheck in AM (4) Hypertension: Plan: Continue Clonidine 0.1 mg BID, losartan/HCTZ QAM, amlodipine 5 mg HS, diltiazem 100 mg QAM (5) Hyperlipidemia: Plan: Continue Atorvastatin 10 mg HS (6) Anxiety and depression: Plan: Continue on duloxetine 90 mg daily, vistaril 50 mg HS, lorazepam 0.5 mg TID prn Reports that he does take a medical marijuana pill DVT ppx: - teds, scds CODE: Full code I spent a total of 35minutes coordinating, documenting and providing care for this patient excluding time spent in performance of separately billed services Admission and Anticipated Discharge Date Admission Date: December 02, 2022 Subjective Patient seen and examined Patient in great spirits. Reports surgical site pain is well controlled Stated that the pain that usually radiates into his right lower extremity has resolved since surgery. Had a BM today Denied any complaints at this time Physical Exam Constitutional: + well hydrated; no acute distress Eyes: PERRL, conjunctivae normal, anicteric sclerae ENMT: external ear and nose normal, oropharynx normal Respiratory: normal respiratory effort, lungs clear to auscultation Cardiovascular: Rate/Rhythm: regular rate and regular rhythm S1 S2 Gastrointestinal (Abdomen): normal bowel sounds, soft, nontender, no hepatosplenomegaly Musculoskeletal: Clean dressing over lower back with drain insitu Neurologic: PERRL, EOMI, accommodation nl, no face palsy, no dysarthria Psychiatric: A+Ox3, euthymic affect Results & Data Results & Data Vital Signs (Past 12 Hours) Vital Signs Temp Pulse Pulse Resp BP Pulse Ox O2 Del Method 12/03/22 13:10 87 18 95 Room Air 12/03/22 12:02 37.1 C 84 16 132/85 97 Room Air 12/03/22 07:51 36.8 C 90 16 147/88 H 97 Room Air 12/03/22 07:13 75 16 96 Room Air Laboratory Results Abnormal lab results 12/03/22 12/03/22 Range/Units 07: 07:23 RBC 3.47 L (4.70-6.10) M/uL Hgb 10.6 L (14.0-18.0) g/dl Hct 31.0 L (42.0-52.0) % Neut # (Auto) 7.33 H (1.40-6.50) K/uL Lymph # (Auto) 0.61 L (1.2-3.4) K/uL [place] # (Auto) 0.65 H (0.11-0.59) K/uL Glucose 116 H (70-99(Fasting)) mg/dl Calcium 8.5 L (8.6-10.3) mg/dl
[2022-12-03] MEDS: LORazepam 0.5 MG TAB PO PRN (16:04)
[2022-12-03] MEDS: DOCUSATE SODIUM/SENNA 50/8.6MG TAB PO SCH (20:46)
[2022-12-03] MEDS: DULoxetine HCL 30 MG CAP PO SCH (20:46)
[2022-12-03] MEDS: amLODIPine BESYLATE 5 MG TAB PO SCH (20:46)
[2022-12-03] MEDS: ATORVASTATIN 10 MG TAB PO SCH (20:47)
[2022-12-03] MEDS: hydrOXYzine HCl 25 MG TAB PO SCH (20:47)
[2022-12-03] MEDS: FLUTICASONE/VILANTEROL 100/25MCG 14 PUFFS/INHALER INH SCH (20:50)
[2022-12-04] MEDS: HYDROmorphone INJ 1 MG/ML SYRINGE IV PRN ×5 (00:34→16:34)
[2022-12-04] MEDS: ALBUTEROL HFA 8 GM INHALER INH SCH ×4 (01:02→19:06)
[2022-12-04] MEDS: oxyCODONE HCL IR 5 MG TAB (IMMEDIATE RELEASE) PO PRN ×5 (01:28→19:32)
[2022-12-04] MEDS: CHOLECALCIFEROL 400 UNITS 10 MCG TAB PO SCH (07:55)
[2022-12-04] MEDS: LOSARTAN/HCTZ 50/12.5MG TAB PO SCH (07:55)
[2022-12-04] MEDS: PANTOprazole 40 MG TAB PO SCH (07:56)
[2022-12-04] MEDS: ASCORBIC ACID 500 MG TAB PO SCH (07:56)
[2022-12-04] MEDS: MONTELUKAST SODIUM 10 MG TABLET PO SCH (07:56)
[2022-12-04] MEDS: dilTIAZem HCL 300 MG CAPCR PO SCH (07:57)
[2022-12-04] MEDS: CYANOCOBALAMIN (B-12) 500 MCG TABLET PO SCH (07:57)
[2022-12-04] MEDS: cloNIDine HCL 0.1 MG TAB PO SCH ×3 (07:57→20:49)
[2022-12-04] MEDS: FLUTICASONE PROPIONATE NA SPR 16 GM BTL SCH (07:58)
[2022-12-04] MEDS: allopurinoL 100 MG TAB PO SCH ×2 (07:59→20:50)
[2022-12-04] MEDS: dexAMETHasone 6 MG in SYRINGE 0 ML IV SCH (08:00)
--- NOTE | 2022-12-04 08:41 | Orthopedic Progress Note ---
Date of Service December 04, 2022 Assessment & Plan (1) Neurogenic claudication due to lumbar spinal stenosis: Plan: Ronny is postoperative day 2 status post thoracolumbar decompression and fusion from T11-L2. Will continue with physical therapy today as well as ambulation in the hallways. Maintain JAVIER drain. Continue with DVT prophylaxis in the form teds and SCDs. Continue with pain control. Continue with bowel regimen. Anticipate discharge home tomorrow. Admission and Anticipated Discharge Date Admission Date: December 02, 2022 Mike Jefferson is postoperative day 2 status post thoracolumbar decompression and fusion from T11-L2. Pain is well controlled. Overall he is doing quite well. Physical therapy yesterday was 400 feet. He is ambling the hallways also. JAVIER drain output last shift was 55 cc. He had a bowel movement. Review of Systems Review of Systems: All systems reviewed & are unremarkable except as noted in HPI & below Physical Exam Physical Exam: He sitting up in bed in no acute distress Alert and oriented x3 Lumbar dressing is clean dry and intact with functioning JAVIER drain Calf soft nontender bilaterally Strength intact bilateral lower extremities Results & Data Vital Signs (Past 12 Hours) Vital Signs Temp Pulse Pulse Resp BP Pulse Ox O2 Del Method 12/04/22 07:56 94 H 16 93 Room Air 12/04/22 07:31 36.6 C 84 16 152/105 H 95 Room Air 12/04/22 00:33 37.2 C 85 16 131/86 96 Room Air 12/03/22 21:00 Room Air 12/03/22 20:40 36.8 C 81 20 170/91 H 96 Room Air
[2022-12-04 08:55] LABS: Hematocrit (blood only) 34.1 % (42.0-52.0); Hemoglobin 11.1 g/dl (14.0-18.0); Mean Corpuscular Hemoglobin 30.1 pg (25.0-34.0); Mean Corpuscular Hgb Conc 32.6 g/dL (32.0-36.0); Mean Corpuscular Volume 92.4 fL (80.0-100.0); Mean Platelet Volume 9.2 fL (9.4-12.4); Platelet Count 292 K/uL (130-400); RDW Coefficient of Variation 12.2 % (11.5-14.5); RDW Standard Deviation 40.9 fL (36.4-46.3); Red Blood Count 3.69 M/uL (4.70-6.10); White Blood Count 10.47 K/ul (4.8-10.8)
[2022-12-04 09:07] LABS: Creatinine Clr Calc Pharmacy 113.6 ml/min; Est GFR (African American) 97.1 ml/min; Est GFR (Non-African American) 83.8 ml/min; Potassium 4.2 mmol/L (3.5-5.1)
--- NOTE | 2022-12-04 09:35 | Hospitalist Progress Note ---
Date of Service December 04, 2022 Assessment & Plan (1) Neurogenic claudication due to lumbar spinal stenosis: (2) S/P lumbar fusion: Plan: POD 2 doing well JAVIER drain malfunctioning-defer to ortho spine activity as tolerated heavy narcotic use-advised to trial PO only wound care per ortho (3) Spinal cord stimulator status: Plan: Pain management, bowel regimen and DVT ppx per the primary team Spinal stimulator to resume per primary team, currently is turned off Hb is 10.6 today. Last hgb was 12.2 two weeks ago Possible post op anemia from blood loss + dilutional. However, Hb had been in 10 the past Recheck in AM (4) Hypertension: Plan: Continue Clonidine 0.1 mg BID, losartan/HCTZ QAM, amlodipine 5 mg HS, diltiazem 100 mg QAM (5) Hyperlipidemia: Plan: Continue Atorvastatin 10 mg HS (6) Anxiety and depression: Plan: Continue on duloxetine 90 mg daily, vistaril 50 mg HS, lorazepam 0.5 mg TID prn Reports that he does take a medical marijuana pill Reports heavy alcohol use with daily drinking. DVT ppx: - teds, scds CODE: Full code. Medically cleared for discharge when appropriate per ortho spine. Shabnam Pate DO [facility] Hospitalist Admission and Anticipated Discharge Date Admission Date: December 02, 2022 Subjective 57 yo M s/p spinal surgery on lumbar area, POD 2 pain is still present and severe, requiring dilaudid and PO oxy encouraged him to hold off on the intravenous pain medication and see how he does He does admit to heavy drinking daily no clear signs of alcohol withdrawal at this time. moving around well concerned that his JAVIER drain fell out, no drainage reports his meds are correct Review of Systems Review of Systems: All other systems were reviewed and negative except as indicated on HPI above. Physical Exam Physical Exam: CONSTITUTIONAL: WNWD, vitals as above, generally well-appearing, NAD EYES: normal conjunctivae, no scleral icterus ENT: external ear and nose normal, MMM NECK: trachea midline RESPIRATORY: clear to auscultation bilaterally, no crackles, rales or wheezes, normal respiratory effort CARDIOVASCULAR: regular rate and rhythm, S1 and 2 heard without murmurs, gallops or rubs, no JVD, no peripheral edema CHEST: inspection of chest was normal GASTROINTESTINAL: soft, nontender, ND, no guarding MUSCULOSKELETAL: strength 5/5 throughout, head is normocephalic and atraumatic SKIN: warm and dry, back incision area covered wtih gauze that is c/d/i NEUROLOGIC: CN 2-12 grossly intact, no sensory deficit, normal cognition, normal speech, no tremor PSYCHIATRIC: alert cooperative and oriented to person, place and time. Euthymic mood, makes good eye contact, language grossly intact, recent and r emote memory grossly intact. Results & Data Results & Data Vital Signs (Past 12 Hours) Vital Signs Temp Pulse Pulse Resp BP Pulse Ox O2 Del Method 12/04/22 07:56 94 H 16 93 Room Air 12/04/22 07:31 36.6 C 84 16 152/105 H 95 Room Air 12/04/22 00:33 37.2 C 85 16 131/86 96 Room Air Laboratory Results Short CBC 12/04/22 Range/Units 08:23 WBC 10.47 (4.8-10.8) K/ul Hgb 11.1 L (14.0-18.0) g/dl Hct 34.1 L (42.0-52.0) % Plt Count 292 (130-400) K/uL BMP 12/04/22 08:23 Sodium 136 Potassium 4.2 Chloride 101 Carbon Dioxide 30 BUN 20 Creatinine 1.00 Glucose 99 Calcium 9.0 Medications Administered Current Inpatient Medications Acetaminophen (Acetaminophen 500 Mg Tab) 1,000 mg PO Q8H PRN PRN Reason: MILD Pain Scale 1,2,3 & Pre PT Stop: 01/01/23 12:31 Al Hydrox/Mg Hydrox/Simethicone (Aluminum/Magnesium Susp 30 Ml Udc) 30 ml PO Q6H PRN PRN Reason: Dyspepsia Stop: 01/01/23 12:31 Albuterol (Albuterol Hfa 8 Gm Inhaler) 1 puffs INH Q6R [facility]DE[facility] Stop: 01/01/23 13:14 Last Admin: 12/04/22 07:55 Dose: 1 puffs Albuterol (Albut/Ipratrop 3mg/0.5mg Neb 3 Ml Vial) 3 ml INH TIDR PRN; Protocol PRN Reason: Shortness Of Breath Stop: 01/01/23 12:31 Allopurinol (Allopurinol 100 Mg Tab) 100 mg PO BID SANDEEP Stop: 01/01/23 20:59 Last Admin: 12/04/22 07:59 Dose: 100 mg Amlodipine Besylate (Amlodipine Besylate 5 Mg Tab) 5 mg PO HS [facility] Stop: 01/01/23 20:59 Last Admin: 12/03/22 20:46 Dose: 5 mg Ascorbic Acid (Ascorbic Acid 500 Mg Tab) 500 mg PO QAM [facility] Stop: 01/02/23 08:59 Last Admin: 12/04/22 07:56 Dose: 500 mg Atorvastatin Calcium (Atorvastatin 10 Mg Tab) 10 mg PO HS [facility] Stop: 01/01/23 20:59 Last Admin: 12/03/22 20:47 Dose: 10 mg Bisacodyl (Bisacodyl 10 Mg Supp) 10 mg NJ DAILY PRN PRN Reason: Constipation Stop: 01/01/23 12:31 Calcium Polycarbophil (Calcium Polycarbophil 625mg Tab) 625 mg PO DAILY PRN PRN Reason: Incontinence Stop: 01/01/23 12:42 Clonidine HCl (Clonidine Hcl 0.1 Mg Tab) 0.1 mg PO TID [facility] Stop: 01/03/23 13:59 Cyanocobalamin (Cyanocobalamin (B-12) 500 Mcg Tablet) 1,000 mcg PO QAM [facility] Stop: 01/02/23 08:59 Last Admin: 12/04/22 07:57 Dose: 1,000 mcg Diltiazem HCl (Diltiazem Hcl 300 Mg Capcr) 300 mg PO QAM [facility] Stop: 01/02/23 08:59 Last Admin: 12/04/22 07:57 Dose: 300 mg Diphenhydramine HCl (Diphenhydramine Capsule 25 Mg Cap) 25 mg PO Q6H PRN PRN Reason: Allergic Rhinitis/Insomnia Stop: 01/01/23 12:31 Last Admin: 12/03/22 11:29 Dose: 25 mg Duloxetine HCl (Duloxetine Hcl 30 Mg Cap) 90 mg PO HS [facility] Stop: 01/01/23 20:59 Last Admin: 12/03/22 20:46 Dose: 90 mg Famotidine (Famotidine 20 Mg Tab) 20 mg PO Q12H PRN PRN Reason: Dyspepsia Stop: 01/01/23 12:31 Fluticasone Propionate (Fluticasone Propionate Na Spr 16 Gm Btl) 2 sprays NA DAILY [facility] Stop: 01/01/23 17:59 Last Admin: 12/04/22 07:58 Dose: 2 sprays Fluticasone/Vilanterol (Fluticasone/Vilanterol 100/25mcg 14 Puffs/Inhaler) 1 puffs INH DAILY [facility] Stop: 01/02/23 08:59 Last Admin: 12/03/22 20:50 Dose: 1 puffs HCTZ/Losartan Potassium (Losartan/Hctz 50/12.5mg Tab) 1 tab PO QAM [facility] Stop: 01/02/23 08:59 Last Admin: 12/04/22 07:55 Dose: 1 tab Hydromorphone HCl (Hydromorphone Inj 0.5 Mg/0.5 Ml Syr) 0.5 mg IV Q3H PRN PRN Reason: MODERATE Pain (Scale 4,5,6) & Pre PT Stop: 12/16/22 12:31 Hydromorphone HCl (Hydromorphone Inj 1 Mg/Ml Syringe) 1 mg IV Q3H PRN PRN Reason: SEVERE Pain (Scale 7,8,9,10) Stop: 12/16/22 12:31 Last Admin: 12/04/22 07:52 Dose: 1 mg Hydroxyzine HCl (Hydroxyzine Hcl 25 Mg Tab) 50 mg PO HS [facility] Stop: 01/01/23 20:59 Last Admin: 12/03/22 20:47 Dose: 50 mg Hydroxyzine HCl (Hydroxyzine Hcl 25 Mg Tab) 25 mg PO Q8H PRN PRN Reason: Anxiety Stop: 01/01/23 12:31 Last Admin: 12/03/22 17:17 Dose: 25 mg Promethazine HCl 12.5 mg/ (Sodium Chloride) 50.5 mls @ 202 mls/hr IV Q6H PRN PRN Reason: Nausea &/or Vomiting Stop: 01/01/23 12:31 Dexamethasone 6 mg/ Syringe 1.5 mls @ 1 mls/min IV DAILY [facility] Stop: 12/05/22 09:02 Last Admin: 12/04/22 08:00 Dose: 1 mls/min Influenza Virus Vaccine Quadrival (Do Not Administer Flu Vaccine) 1 each N/A PRN PRN PRN Reason: Notification Stop: 01/01/23 12:31 Lorazepam (Lorazepam 0.5 Mg Tab) 0.5 mg PO Q8H PRN PRN Reason: Sedation/Anxiety Stop: 01/01/23 12:31 Last Admin: 12/03/22 16:04 Dose: 0.5 mg Lorazepam (Lorazepam 2 Mg/1 Ml Vial) 0.5 mg IV Q8H PRN PRN Reason: Sedation/Anxiety Stop: 01/01/23 12:31 Magnesium Hydroxide (Magnesium Hydroxide Susp 30 Ml Udc) 30 ml PO Q24H PRN PRN Reason: Constipation Stop: 01/01/23 12:31 Last Admin: 12/03/22 09:13 Dose: 30 ml Metoclopramide HCl (Metoclopramide Hcl Inj 5 Mg/Ml 2 Ml Vial) 10 mg IV Q6H PRN PRN Reason: Nausea &/or Vomiting Stop: 01/01/23 12:31 Montelukast Sodium (Montelukast Sodium 10 Mg Tablet) 10 mg PO DAILY [facility] Stop: 01/01/23 17:54 Last Admin: 12/04/22 07:56 Dose: 10 mg Naloxone HCl (Naloxone Hcl 0.4 Mg/1 Ml Vial/Carp) 0.1 mg IV Q5M PRN PRN Reason: Oversedation/Resp depression Stop: 01/01/23 12:31 Ondansetron HCl (Ondansetron Inj 2 Mg/Ml 2 Ml Vial) 4 mg IV Q6H PRN PRN Reason: Nausea &/or Vomiting Stop: 01/01/23 12:31 Ondansetron HCl (Ondansetron 4 Mg Od Tab) 4 mg PO Q6H PRN PRN Reason: Nausea Stop: 01/01/23 12:31 Oxycodone HCl (Oxycodone Hcl Ir 5 Mg Tab (Immediate Release)) 5 - 10 mg PO Q4H PRN PRN Reason: Pain & Pre PT Stop: 12/16/22 12:31 Last Admin: 12/04/22 05:32 Dose: 10 mg Pantoprazole Sodium (Pantoprazole 40 Mg Tab) 40 mg PO QAM [facility] Stop: 01/02/23 08:59 Last Admin: 12/04/22 07:56 Dose: 40 mg Pneumococcal Polyvalent Vaccine (Do Not Administer Pneumococcal Vaccine) 1 each N/A PRN PRN PRN Reason: Notification Stop: 01/01/23 12:31 Senna/Docusate Sodium (Docusate Sodium/Senna 50/8.6mg Tab) 2 tab PO HS [facility] Stop: 01/01/23 20:59 Last Admin: 12/03/22 20:46 Dose: 2 tab Sodium Biphosphate/Sodium Phosphate (Sod Phosphate/Sod Biphosphate Enema 132 Ml Btl) 132 ml NJ ONE PRN PRN Reason: Constipation Stop: 01/01/23 12:31 Tramadol HCl (Tramadol Hcl 50 Mg Tablet) 50 - 100 mg PO Q4H PRN PRN Reason: Moderate-Severe pain & Pre PT Stop: 01/01/23 12:31 Vitamin D (Cholecalciferol 400 Units 10 Mcg Tab) 1,[facility] [place] Stop: 01/02/23 08:59 Last Admin: 12/04/22 07:55 Dose: 1,200 units
[2022-12-04] MEDS: LORazepam 0.5 MG TAB PO PRN (09:37)
[2022-12-04] MEDS: diphenhydrAMINE Capsule 25 MG CAP PO PRN ×2 (13:46→19:34)
[2022-12-04] MEDS: MAGNESIUM HYDROXIDE SUSP 30 ML UDC PO PRN (16:34)
[2022-12-04] MEDS: DULoxetine HCL 30 MG CAP PO SCH (20:50)
[2022-12-04] MEDS: DOCUSATE SODIUM/SENNA 50/8.6MG TAB PO SCH (20:50)
[2022-12-04] MEDS: ATORVASTATIN 10 MG TAB PO SCH (20:50)
[2022-12-04] MEDS: amLODIPine BESYLATE 5 MG TAB PO SCH (20:51)
[2022-12-04] MEDS: hydrOXYzine HCl 25 MG TAB PO SCH (20:51)
[2022-12-04] MEDS: FLUTICASONE/VILANTEROL 100/25MCG 14 PUFFS/INHALER INH SCH (20:52)
[2022-12-05] MEDS: ALBUTEROL HFA 8 GM INHALER INH SCH ×2 (00:56→07:30)
[2022-12-05] MEDS: oxyCODONE HCL IR 5 MG TAB (IMMEDIATE RELEASE) PO PRN ×2 (03:38→07:37)
--- NOTE | 2022-12-05 08:46 | Discharge Summary ---
Date of Service December 05, 2022 Admission HPI Per Admitting Provider This is a 57-year-old male who presents with chronic system back and leg pain after failing course of nonoperative care is here for surgical invention. Principal Diagnosis Lumbar spinal stenosis with neurogenic claudication Discharge Data Allergies Allergy/AdvReac Type Severity Reaction Status Date / Time No Known Allergies Allergy Verified 12/02/22 06:46 Consultations 12/02/22 12:32 Consult Hospitalist Routine Procedures Performed Operation Date: 12/02/22 07:45 Actual Procedures p L1-L2 Decompression, T11-L2 Fusion (Connecting to Old Hardware), Spinal Cord Monitoring(Not Applicable) - Fermin Dejesus DO Ordered Studies 12/02/22 07:45 FL lumbar spine 2-3V Routine Hospital Course (1) Neurogenic claudication due to lumbar spinal stenosis: Patient underwent limiting question fusion tolerated so was taken to orthopedic for postop labor postop day 1 he was up ambulating Vladislav postop day #2 and 3. JAVIER drain decreased bone production strength testing. Pain well controlled. Subsequent discharge home. Discharge orders and instructions found in chart for further review. Total Time Total Time Spent Total Time Spent (In Minutes): 20 minutes Discharge Plan Discharge Items Patient Disposition: Home - Self-Care Reason For Visit: Spinal Stenosis, Lumbar Region with Neurogenic Cla Discharge Diagnosis: Lumbar spinal stenosis with neurogenic claudication Activity: As commented below Non-emergency contact: Primary Care Provider Call non-emergency contact if: you have any medication questions Follow-up/Referrals: Ian Munoz M.D. [Primary Care Provider] - Diet: Regular Addtl Attending Provider Instructions: ACTIVITY RECOMMENDATIONS: SELF CARE INSTRUCTIONS AFTER THORACIC/LUMBAR FUSIONS 1. You may walk to your tolerance. It is good exercise for your legs and back. Expect some back and intermittent leg aches and pains. 2. You may perform "counter-top" level activities (make a sandwich, joan with a project, etc.). 3. No bending or lifting of more than 10 pounds or back twisting of any nature (roll like a log when turning in bed). 4. You may ride in a car for 20-30 minutes at a time. No driving until after your first visit with your doctor. 5. Frequent changes of position and restricting sitting to 30 minutes at a time will help limit the amount of back spasms and stiffness you may experience. 6. You may discontinue the use of ambulatory aids (cane, crutches, etc.) once your strength and confidence allow. 7. You may dip stand loader the shower and let water strike your incision when you arrive home at least once daily. Do not take a tub bath, sit in a hot tub or go into a swimming pool until after your first recheck in the office. SPECIAL CARE INSTRUCTIONS: VERY IMPORTANT TO READ AND REVIEW A. Your surgical incision has been closed with a cosmetic suture under the skin that will dissolve in about 6 weeks. In 14 days, you can use a pair of clean scissors and cut the suture that is left outside of the skin at the ends of your incision. 1. The small skin tapes can be removed 7 days after surgery if they have not fallen off by that point. 2. You may keep the wound open to air as much as possible to promote healing after post-op day number 5 unless told otherwise by your doctor. 3. If you think the wound looks like it is becoming infected (redness or worsening drainage) and/or you are experiencing fever, chill or worsening back pain and muscle spasms, contact the office so that we may evaluate you as soon as possible. B. Complications are uncommon, but please contact us if you have any signs or symptoms of: 1. wound infection (fever higher than 102.5 degrees F, redness, separation of wound, drainage, or increasing pain from the incision) 2. blood clots in legs (pain, swelling, redness and warmth in legs) 3. urinary tract infection (fever higher than 102.5 degrees F, burning upon urination or increased frequency of urination) 4. nerve problems (inability to walk on your toes or heels, numbness, loss of bowel or bladder control) 5. any other symptoms that concern you C. Please call the office at if you have any concerns or questions about your operation or recovery. D. No smoking! Smoking drastically decreases the chance of a solid fusion. E. Do not take any anti-inflammatory medications (Indocin, Advil, Motrin, Aspirin, Naprosyn, etc.) as these may inhibit the chance of a solid fusion. Tylenol is okay to take for pain. MANAGING PAIN AFTER SPINAL SURGERY 1. Narcotic medication is intended for short-term use and will be provided for surgical pain. Surgical pain usually lasts for a period of 4-6 weeks. Narcotic medication includes Percocet, Vicodin, Darvocet, Tylenol #3 or Lortab. 2. Longer-term pain is more appropriately treated with non-narcotic medication such as Tylenol ES. 3. Muscle spasm is not appropriately treated with narcotics. Muscle relaxers such as Soma, Flexeril or Skelaxin can be used along with Tylenol ES. 4. Remember that we all live with some "aches and pains". This is not unusual or uncommon after an injury or as we get older. a. Back pain is expected and may include muscle spasms for 4 to 6 weeks after surgery. The pain should gradually improve. If the pain worsens for no apparent reason, please contact the office. b. Intermittent leg pain may also be experienced and should not be concerned about unless it worsens for no apparent reason. If so, please contact the office. 5. We will provide appropriate medication within the normal guidelines of their prescribed use. We will also be very cautious and aware of potential abuse and extended duration of patients' medication needs. a. Pain medications are for your comfort and to assist with sleep and rest so that the tissue can heal. They are not provided in order to return to normal activity and should not be used through the day. To do so or worsening pain at night can result from ongoing tissue damage and development of tolerance to the prescribed medicine. 6. Please allow 2-3 days to process refills. Prescriptions will not be mailed but must be picked up at the office. FOLLOW UP VISIT: Keep your scheduled follow-up appointment. Any questions, please call the office at . Pending Studies at Discharge: No Stand-Alone Forms: [facility], Sm[facility] Cess[facility] Medications and DC Order Prescriptions: New oxycodone 5 mg tablet 5 mg PO DAILY PRN (Reason: pain) Qty: 30 0RF Continued cyanocobalamin (vitamin B-12) [Vitamin B-12] 1,000 mcg Tablet Extended Release 1,000 mcg PO QAM atorvastatin 10 mg Tablet 10 mg PO HS losartan-hydrochlorothiazide 100-25 mg Tablet 1 tab PO QAM omeprazole 20 mg Capsule,Delayed Release(Dr/Ec) 20 mg PO QAM vitamin E 400 unit Capsule 400 unit PO QAM duloxetine 60 mg Capsule,Delayed Release(Dr/Ec) 90 mg PO HS cholecalciferol (vitamin D3) [Vitamin D3] 10 mcg (400 unit) Tablet,Chewable 30 mcg PO QAM allopurinol 100 mg Tablet 100 mg PO BID clonidine HCl 0.1 mg Tablet 0.1 mg PO BID hydroxyzine pamoate [Vistaril] 50 mg Capsule 50 mg PO HS amlodipine 5 mg Tablet 5 mg PO HS ascorbic acid (vitamin C) [Vitamin C] 500 mg Tablet 500 mg PO QAM cranberry 1,000 mg Capsule 1,500 mg PO QAM diltiazem HCl 300 mg Tablet Extended Release 24 Hr 300 mg PO QAM coenzyme Q10 [Co Q-10] 400 mg Capsule 400 mg PO QAM Dulera 100-5 mcg/actuation Hfa Aerosol Inhaler 2 puff INHALATION BID Probiotic 3 billion cell Capsule 3,000 mmu cells PO QAM oxycodone 5 mg tablet 5 mg PO Q4H MDD 6 PRN (Reason: pain) Qty: 30 0RF lorazepam 0.5 mg Tablet 0.5 mg PO TID PRN (Reason: Anxiety) ipratropium-albuterol 0.5 mg-3 mg(2.5 mg base)/3 mL Solution For Nebulization 3 ml INHALATION TID PRN (Reason: Shortness Of Breath) psyllium husk [Metamucil] 0.4 gram Capsule 0.4 g PO DAILY PRN (Reason: Incontinence) albuterol sulfate 90 mcg/actuation HFA aerosol inhaler See Rx Instructions .ROUTE .COMPLEX Rx Instructions: 1 mcg inhaled every 4-6 hrs tramadol 50 mg tablet 50 mg PO QID fexofenadine [Alejandra Allergy] 180 mg Tablet 180 mg PO DAILY montelukast [Singulair] 10 mg Tablet 10 mg PO DAILY Trelegy Ellipta 200-62.5-25 mcg Blister With Device 1 inh INHALATION DAILY Discharge Orders: Discharge Order (Routine); Ordered 12/05/22 Ordered By: Fermin Dejesus Admission Data Admit Date/Time: 12/02/22 10:21 Attending Provider: Fermin Dejesus Admit Provider: Fermin Dejesus Primary Care Provider: Ian Munoz Other Providers: Shabnam Pate
[2022-12-05] MEDS: ASCORBIC ACID 500 MG TAB PO SCH (09:17)
[2022-12-05] MEDS: PANTOprazole 40 MG TAB PO SCH (09:18)
[2022-12-05] MEDS: allopurinoL 100 MG TAB PO SCH (09:18)
[2022-12-05] MEDS: dilTIAZem HCL 300 MG CAPCR PO SCH (09:18)
[2022-12-05] MEDS: cloNIDine HCL 0.1 MG TAB PO SCH (09:18)
[2022-12-05] MEDS: MONTELUKAST SODIUM 10 MG TABLET PO SCH (09:18)
[2022-12-05] MEDS: LOSARTAN/HCTZ 50/12.5MG TAB PO SCH (09:18)
[2022-12-05] MEDS: CHOLECALCIFEROL 400 UNITS 10 MCG TAB PO SCH (09:19)
[2022-12-05] MEDS: CYANOCOBALAMIN (B-12) 500 MCG TABLET PO SCH (09:19)
[2022-12-05] MEDS: dexAMETHasone 6 MG in SYRINGE 0 ML IV SCH (09:19)
[2022-12-05] MEDS: FLUTICASONE PROPIONATE NA SPR 16 GM BTL SCH (09:20)
== END 2022-12-05 10:47 | disposition home or self-care (01) | DRG 455 ==
LOC: ASU 06:22 → 3E 10:21 → INTOOBSV 10:21 → OBSVTOIN 10:21